=== PATIENT | male | born 1935 | race Caucasian/White ===

== ENCOUNTER 2016-12-18 08:40 | Observation (INO) ==
--- NOTE | 2016-12-18 09:40 | Emergency Department Note ---
START Narrative - START START: I examined this patient and my medical decision-making was reviewed with the COMPLIANCE PROFESSIONAL/PA/Advanced Practice Nurse/Resident Physician. I agree with the documented findings, disposition and treatment plan as described except to the extent set forth below. ED attending: Patient's emergency medicine resident Dr. MENDIOLA. Please see copy of this note for H&P evaluation and management and ED disposition. We both had independent [id number] time contact with this patient. Briefly: A 1-year-old male history of ID presents ambulatory with family members for fall and syncopal event. Patient up around 7 AM to change possibly his knee locked fell. He said the back of his head on his furniture brief loss of consciousness. He is awake and alert GCS 15 no vomiting no slurred speech neurologically nonfocal afebrile stable vital signs. Of concern he has EKG which shows new AV block possibly and a bradycardia. Patient has no neck pain. Satisfies the Nexus criteria so we will not image his neck. He will get a noncontrast CT the head screening labs and EKG. Admission considered. Disposition pending. Provided 40 minutes of critical care services this patient.
--- NOTE | 2016-12-18 09:40 | Emergency Department Note ---
Disposition Clinical Impression: Bradycardia by electrocardiogram, Mobitz type 2 second degree AV block Fall Qualifiers: Encounter type: initial encounter Qualified Code(s): W19.XXXA - Unspecified fall, initial encounter Closed head injury Qualifiers: Encounter type: initial encounter Qualified Code(s): S09.90XA - Unspecified injury of head, initial encounter Disposition: Admitted As Inpatient Condition: Fair Time of Disposition: 11:36 General Adult HPI - General Chief complaint: ED Weakness Stated complaint: fall/legs collapsed from under/weakness Time Seen by Provider: 12/18/16 09:05 Source: patient Limitations: no limitations Nursing Notes Reviewed: Yes Vital Signs Reviewed: Yes - History of Present Illness HPI Narrative: 81-year-old male presents to the ED complaining of fall from earlier this morning. Patient has a past medical history of myocardial infarction, pulmonary embolism, arthritis. Patient states that he was getting up this morning at approximately 7:00 this morning he said he was walking to the bathroom and he felt like his knee possibly locked and he fell backwards hitting the back of his head against the wall. Patient states that he had a 2 out of 10 pain in the back of the head when he fell and also noted a short loss of consciousness. Family when asked about what happened and stated that he was , unsure and was acting his normal self. They stated that he is acting normal now. He is not complaining of a other symptoms at this time. They came here stating they are worried that he has a stroke as his mother had many strokes and he has not had one yet and is worried that he is susceptible to them. Pain Scale: 2 - Related Data Home Medications Medication Instructions Recorded Confirmed Aspirin/Calcium Carbonate/Mag 325 mg PO DAILY 05/27/15 12/18/16 [Aspirin Buffered 325 mg Tab] Atorvastatin [Lipitor] 40 mg PO DAILY 05/27/15 12/18/16 Cholecalciferol (Vitamin D3) 2,000 unit PO DAILY 05/27/15 12/18/16 [Vitamin D3] Fluticasone Propionate Nasal 1 spray NS DAILY 05/27/15 12/18/16 [Flonase] Lisinopril [Zestril] 40 mg PO DAILY 05/27/15 12/18/16 Omeprazole [PriLOSEC] 20 mg PO DAILY 05/27/15 12/18/16 traMADol [Ultram] 50 mg PO TID PRN 05/27/15 12/18/16 Simvastatin [Zocor] 40 mg PO HS 12/18/16 12/18/16 Allergies Allergy/AdvReac Type Severity Reaction Status Date / Time No Known Allergies Allergy Verified 12/18/16 08:43 All systems ED: reviewed and negative except as stated. Constitutional: Denies: fever, chills, weakness, weight change Eyes: Denies: eye pain, eye discharge, vision change ENT ED: Denies: ear pain, throat pain, dental pain, hearing loss, epistaxis, congestion, dysphagia Cardiovascular: Denies: chest pain, palpitations, dyspnea on exertion, edema, syncope Respiratory: Denies: cough, dyspnea, wheezes, hemoptysis, stridor Gastrointestinal: Denies: abdominal pain, nausea, vomiting, diarrhea, constipation, hematemesis, melena, hematochezia Genitourinary: Denies: urgency, dysuria, frequency, hematuria Musculoskeletal: Denies: back pain, neck pain, arthralgia, myalgia Integumentary: Denies: rash, abrasion, lesions Neurological: Denies: headache, weakness, numbness, paresthesias, confusion, abnormal gait, vertigo Psychiatric: Denies: anxiety, depression, suicidal thoughts, homicidal thoughts , auditory hallucinations, visual hallucinations Endocrine: Denies: fatigue Hematological/Lymphatic: Denies: easy bleeding, easy bruising Past Medical History - Past Medical History Attestation: Yes The following information was validated with the patient. Medical history: Reports: hypertension, myocardial infarction, pulmonary embolus Surgical history: Reports: angioplasty/stent, appendectomy, cholecystectomy, coronary bypass (CABG) Psychiatric history: Reports: no psych history - Social History Smoking Status: Never smoker Smokeless Tobacco Status: No Alcohol use: Reports: none Drug use: Reports: none Physical Exam - General Limitations: no limitations General appearance: alert - Head Head exam: atraumatic, normocephalic, normal inspection - Eye Eye exam: Present: normal appearance, PERRL, EOMI - ENT ENT exam: normal exam, normal oropharynx, mucous membranes moist - Neck Neck exam: Present: normal inspection, full ROM, trachea midline. Absent: tenderness, lymphadenopathy - Chest Chest inspection: Present: normal inspection, symmetric chest wall rise - Respiratory Respiratory exam: Present: normal lung sounds bilaterally - Cardiovascular Cardiovascular exam: Present: normal rhythm, bradycardia (With minor pauses), normal heart sounds - Abdominal Exam Abdominal exam: Present: soft, Non-Tender. Absent: tenderness, distention, guarding, rebound, rigidity - Extremities Exam Extremities exam: Present: normal inspection, full ROM. Absent: tenderness, pedal edema - Back Exam Back exam: Present: normal inspection, full ROM. Absent: tenderness, CVA tenderness (R), CVA tenderness (L) - Neurological Exam Neurological exam: Present: alert, oriented X3, CN II-XII intact - Expanded Neurological Exam Patient oriented to: Present: person, place, time Speech: Present: fluid speech Cranial nerves: EOM function (II, III, IV, ): Normal, facial sensation (V): Normal, facial palsy (VII): Normal, spinal accessory function (XI): Normal, tongue deviation (XII): Normal Cerebellar function: finger to nose: Normal, heel to george: Normal Cerebellar function: normal gait Motor strength - LUE: 5/5 Motor strength - RUE: 5/5 Motor strength - LLE: 5/5 Motor strength - RLE: 5/5 Sensory exam upper extremity: light touch: Normal Sensory exam lower extremity: light touch: Normal Spinal cord function: Absent: saddle anesthesia Coma Scale Eye Opening: Spontaneous Coma Scale Motor Response: Obeys Commands Coma Scale Verbal Response: Oriented Coma Scale Total: 15 - Skin Skin exam: Present: warm, dry, intact, normal color Course Course Narrative: 81-year-old male was STD from a fall family's worry about stroke. Due to cardiac history we will order EKG and troponins. Due to the fall will get CBC and BMP looking for any anemias or electrolyte abnormalities. After talking with family they would like a CT of the head to be done. At this time I do not think a CT of the neck is needed as patient had no neurological symptoms and no tenderness on palpation to the cervical spine. Patient is awake and alert with no nausea or vomiting at this time. I do not think this is a stroke. Patient is okay with this plan. - Reevaluation(s) Reevaluation #1: Reevaluation states he is still doing well at this time he is not any nausea, vomiting, pain or tingling in the arms or legs or any numbness. They did note that his heart rate has been dropping into the 30s and 40s. Reviewed his CT scan of his head which showed no acute abnormalities and review this with the patient and he understands it. Labs came back showing mild hyponatremia most likely due to slight dehydration. EKG was abnormal based on his last one after talking with the patient more we both agree that admission to the hospital is the best course of action at this time. Patient will have an IV placed for the admission. Call made to hospitalist awaiting callback from hospitalist. Time: 10:49 Reevaluation #2: Patient is still doing well in bed and they have not noticed any heart rates down into the 30s and 40s at this time. I spoke with the hospitalist who agreed to accept the patient and asked for cardiology be consulted as well as ordering coagulation studies. I consult with cardiology and spoke with Dr. Hinson who asked for the patient to be nothing by mouth at this time as there is possibility of placing a pacemaker today. They stated they will since on down to see him. Currently awaiting bed for admission. Time: 11:31 - Consultations Consultation #1: Spoke with the hospitalist Dr. Garcia who agreed to admit the patient with a cardiac consultation and I would order regulation studies. Consultation #2: Spoke with cardiology Dr. Hinson who agreed to see the patient and asked for the patient to be nothing by mouth for possible pacemaker placement today. Vital Signs Temperature 97.8 F 12/18/16 08:44 Pulse Rate 72 12/18/16 08:44 Respiratory Rate 20 12/18/16 08:44 Blood Pressure 183/132 12/18/16 08:44 O2 Sat by Pulse Oximetry 99 12/18/16 08:44 Temperature 97.8 F 12/18/16 08:44 Pulse Rate 69 12/18/16 10:32 Respiratory Rate 18 12/18/16 10:32 Blood Pressure 138/84 12/18/16 10:32 O2 Sat by Pulse Oximetry 96 12/18/16 10:32 Oxygen Delivery Oxygen Delivery Room Air Medical Decision Making - [facility] Narrative Medical decision making narrative: An 81-year-old male who presents to the ED complaining of weakness from a fall and was worried about a stroke. After Dr. Grant he stated that he fell while getting up to go to the bathroom where he was very diaphoretic and weak and had to crawl his way to the toilet because he was scared he was going to vomit. He states that he fell backwards and hit the back of his head against the wall and did lose consciousness. came and when she heard him fall and said that he was not acting his normal self at this time. They brought him in today worried about a stroke. We did a head CT which was negative for any acute findings. We also did basic labs showed a mild hyponatremia with no other changes. His EKG didmajor changes and now he was sinus bradycardic with a second-degree AV block Mobitz type II which is new based on his EKG done 05/27/15 which showed normal sinus rhythm which is a first-degree block. After talking with patient more he has not been on his beta hank has had no chest pains or shortness of breath recently. He has noted his positives during his heart rate he said when he checks his pulse at home and due to his cardiac history of having myocardial infarctions and being seen by cardiology we thought it best to admit the patient. Family and patient agree with this plan. Hospitalist was notified and agreed to accept the patient with a cardiology consult. Reality was consulted and asked the patient to be nothing by mouth for possible pacemaker placement today. Patient admitted to hospitalist service with cardiac consultation. Head CT 12/18/16 09:33 IMPRESSION: No acute intracranial abnormality. Chronic white matter changes and age-related cerebral atrophy. D/ / Guanako Iqbal MD / Guanako Iqbal MD Interpreting Provider: Guanako Iqbal MD - Medical Records Medical records reviewed: Yes I reviewed the patient's medical records. - Lab Data Lab results reviewed: Yes I reviewed the patient's lab results. Result diagrams: 12/18/16 09:47 12/18/16 09:47 Lab Results 12/18/16 12/18/16 12/18/16 Range/Units 09:47 09:47 09:47 WBC 7.5 (4.3-11.1) K/mcL RBC 4.70 (4.19-5.50) M/mcL Hgb 14.4 (12.9-16.9) g/dL Hct 42.4 (37.5-50.1) % MCV 90.2 (83.0-100.0) fL MCH 30.6 (28.0-33.3) pg MCHC 34.0 (31.6-35.5) g/dL RDW 12.1 (11.5-14.5) % Plt Count 173 (140-400) K/mcL MPV 9.1 L (9.4-12.4) fL Immature Gran % 0.4 (0-4) % Seg Neutrophils % 70.7 % Lymphocytes % 13.2 % Monocytes % 12.1 % Eosinophils % 2.8 % Basophils % 0.8 % Neutrophils # 5.3 (1.6-8.9) K/mcL Lymphocytes # 1.0 (0.6-4.6) K/mcL Monocytes # 0.9 (0.0-1.3) K/mcL Eosinophils # 0.2 (0.0-0.6) K/mcL Basophils # 0.1 (0.0-0.2) K/mcL PT (9.4-12.1) Seconds INR APTT (26.0-36.0) Seconds Sodium 134 L (136-145) mEq/L Potassium 4.5 (3.5-4.5) mEq/L Chloride 102 (98-109) mEq/L Carbon Dioxide 25 (19-29) mEq/L BUN 20 (8-26) mg/dL Creatinine 1.17 (0.72-1.25) mg/dL Est GFR ( Amer) > 60 (> 60) Est GFR (Non-Af Amer) 60 (> 60) BUN/Creatinine Ratio 17 (6-26) Glucose 114 H (70-99) mg/dL Calculated Osmolality 281 (280-300) Calcium 9.7 (8.6-10.8) mg/dL Troponin I 0.02 (0-0.03) ng/mL 12/18/16 Range/Units 09:47 WBC (4.3-11.1) K/mcL RBC (4.19-5.50) M/mcL Hgb (12.9-16.9) g/dL Hct (37.5-50.1) % MCV (83.0-100.0) fL MCH (28.0-33.3) pg MCHC (31.6-35.5) g/dL RDW (11.5-14.5) % Plt Count (140-400) K/mcL MPV (9.4-12.4) fL Immature Gran % (0-4) % Seg Neutrophils % % Lymphocytes % % Monocytes % % Eosinophils % % Basophils % % Neutrophils # (1.6-8.9) K/mcL Lymphocytes # (0.6-4.6) K/mcL Monocytes # (0.0-1.3) K/mcL Eosinophils # (0.0-0.6) K/mcL Basophils # (0.0-0.2) K/mcL PT 11.6 (9.4-12.1) Seconds INR 1.1 APTT 28.6 (26.0-36.0) Seconds Sodium (136-145) mEq/L Potassium (3.5-4.5) mEq/L Chloride (98-109) mEq/L Carbon Dioxide (19-29) mEq/L BUN (8-26) mg/dL Creatinine (0.72-1.25) mg/dL Est GFR ( Amer) (> 60) Est GFR (Non-Af Amer) (> 60) BUN/Creatinine Ratio (6-26) Glucose (70-99) mg/dL Calculated Osmolality (280-300) Calcium (8.6-10.8) mg/dL Troponin I (0-0.03) ng/mL - Radiology Data Radiology results reviewed: Yes I reviewed the patient's radiology results. - EKG Data EKG #1 EKG results narrative: EKG done and reviewed by myself out cardiology at 9:30 which shows sinus bradycardia at a rate of 50 bpm, QRS 133, QTc 384 with a left axis deviation. The overall EKG shows a Mobitz type II second-degree AV block. When compared to old one done 05/27/15 there was a first degree AV block. He was normal sinus rhythm not bradycardic also with a left axis deviation. This overall is a new change on his EKG is abnormal EKG. EKG shows normal: sinus rhythm, QRS complexes, ST-T waves Rate: bradycardia [place]/QRS: left axis deviation Heart block present: Mobitz 2 When compared to previous EKG there are: changes noted (Patient had first- degree AV block with no signs of bradycardia on last EKG done 05/27/15) Interpretation: other (2 Mobitz block with positives and showing bradycardia)
[2016-12-18 09:53] LABS: Basophils # 0.1 K/mcL (0.0-0.2); Basophils % 0.8 %; Eosinophils # 0.2 K/mcL (0.0-0.6); Eosinophils % 2.8 %; Hematocrit 42.4 % (37.5-50.1); Hemoglobin 14.4 g/dL (12.9-16.9); Immature Granulocytes % 0.4 % (0-4); Lymphocytes % 13.2 %; Mean Corpuscular Hemoglobin 30.6 pg (28.0-33.3); Mean Corpuscular Volume 90.2 fL (83.0-100.0); Mean Platelet Volume 9.1 fL (9.4-12.4); Monocytes # 0.9 K/mcL (0.0-1.3); Monocytes % 12.1 %; Neutrophils # 5.3 K/mcL (1.6-8.9); Platelet Count 173 K/mcL (140-400); Red Cell Distribution Width 12.1 % (11.5-14.5); Segmented Neutrophils % 70.7 %
[2016-12-18 10:09] LABS: BUN/Creatinine Ratio 17 (6-26); Blood Urea Nitrogen 20 mg/dL (8-26); Calcium 9.7 mg/dL (8.6-10.8); Carbon Dioxide 25 mEq/L (19-29); Chloride 102 mEq/L (98-109); Glucose 114 mg/dL (70-99); Osmolality,Calculated 281 (280-300); Potassium 4.5 mEq/L (3.5-4.5); Sodium 134 mEq/L (136-145); eGFR For African Americans > 60 (> 60); eGFR For Non-African Americans 60 (> 60)
[2016-12-18 11:08] LABS: INR 1.1; Prothrombin Time 11.6 Seconds (9.4-12.1)
[2016-12-18 11:11] LABS: Activated Partial Thrombo Time 28.6 Seconds (26.0-36.0)
[2016-12-18 12:01] LABS: Bilirubin,Urine Negative (Negative); Blood,Urine Negative (Negative); Clarity,Urine Clear (Clear); Color,Urine Yellow (Yellow); Glucose,Urine (UA) Normal (Normal); Ketones,Urine Negative (Negative); Leukocyte Esterase,Urine Negative (Negative); Nitrite,Urine Negative (Negative); Protein,Urine Negative (Neg-Trace); Specific Gravity,Urine 1.011 (1.010-1.025); Urobilinogen,Urine Normal (Normal)
[2016-12-18] MEDS ORDERED: Naloxone 0.4 MG/ML INJ IVP PRN (12:06)
[2016-12-18] MEDS ORDERED: Ondansetron 4 MG/2 ML VIAL IVP PRN (12:20)
--- NOTE | 2016-12-18 12:28 | Internal Med History&Physical ---
<CharlyElicia M - Last Filed: 12/18/16 12:26> Date of Encounter: 12/18/16 Time of Encounter: 12:28 Assessment and Plan (1) Mobitz type 2 second degree AV block Current visit: Yes Status: Acute Patient reporting fatigue lately, as well as collapse this morning followed by weakness. EKG showed sinus bradycardia with 2nd degree AV block, mobitz type II. His heart rate on the monitor was reportedly dropping into the 30s-40s from time to time. On exam, irregular rhythm, with systolic murmur, HR in the 60s. Continuous multiple effect evaporator operator cardiology consulted NPO for possible pacemaker placement. (2) Fall Current visit: Yes Status: Acute Patient suffered a fall at home, reporting he just "collapsed" and feels his legs buckled. Found to have 2nd degree heart block type [address] head negative for abnormality. Head was atraumatic on exam. no neurological deficits. Fall precautions Qualifiers: Encounter type: initial encounter Qualified Code(s): W19.XXXA - Unspecified fall, initial encounter (3) Hypertension Current visit: Yes Status: Acute Patient did not take medications this morning, because he fell soon after waking. Will give home doses of blood pressure medications today. Continue to monitor. Qualifiers: Hypertension type: essential hypertension Qualified Code(s): I10 - Essential (primary) hypertension (4) Cardiomyopathy Current visit: Yes Status: Acute history of ischemic cardiomyopathy. Last echo in 2013 showed EF of 40-45% with mild diastolic dysfunction. Now with new arrhythmia. Echocardiogram. Continuous multiple effect evaporator operator Cardiology consulted. Qualifiers: Cardiomyopathy type: ischemic Qualified Code(s): I25.5 - Ischemic cardiomyopathy (5) DVT prophylaxis Current visit: Yes Status: Acute anti-embolic stockings Heparin TID Internal Medicine - H&P: HPI Chief complaint: fall Admitted From: Emergency Dept Plans for Post Hospital Care: Home History of present illness: Mr. Rowe is a 81 year old male with hypertension, coronary artery disease status post CABG, history of PE, ischemic cardiomyopathy presents to the emergency department today with complaints of fall. Patient reports that he was getting ready to get in the shower this morning when he just collapsed and fell to the floor. He denies feeling like he was lightheaded, and cannot really articulate why her how it happened but thinks that his legs gave out from him. He does report hitting his head against the wall. He reports that he was weak and diaphoretic after suffering the fall. He denies any lightheadedness, headache, dizziness, chest pain, palpitations, shortness of breath. Evaluation in the emergency department included an EKG which showed a new Mobitz type II block, his heart rate was noted to dip into the 30s and 40s on the monitor. CT of the head showed no acute abnormality. Other labs were grossly normal. On exam, patient alert and oriented, in no acute distress. Heart had a regular rhythm with systolic murmur. Heart rate was in the 60s during my evaluation. Lungs are clear bilaterally to auscultation. Abdomen soft nontender, with positive bowel sounds. No peripheral edema, peripheral pulses intact. Cranial nerves intact, no neurological deficits. Past Med Surg Social Fam HX - Past Medical History Medical history: cardiomyopathy, coronary artery disease, hypertension, myocardial infarction, pulmonary embolus Psychiatric history: no psych history - Past Surgical History Surgical History: angioplasty/stent, appendectomy, cholecystectomy, colectomy ( Partial colectomy for diverticulitis 1996), coronary bypass (CABG) - Social History Smoking Status: Never smoker Smokeless Tobacco Status: No Alcohol use: none Drug use: none - Family History Father Living Status: Age at : 74 Cause of : cirrhosis Hx Family GI Disorders: Yes (cirrhosis) Mother Living Status: Age at : 74 Hx Family Cardiac Disorders: Yes ([place], CVA) Sister Living Status: Still Living Hx Family Cardiac Disorders: Yes Internal Medicine - H&P: Meds Aspirin/Calcium Carbonate/Mag [Aspirin Buffered 325 mg Tab] 325 mg PO DAILY 08/06 [History] Atorvastatin [Lipitor] 40 mg PO DAILY 05/27/15 [History] Cholecalciferol (Vitamin D3) [Vitamin D3] 2,000 unit PO DAILY 05/27/15 [History] Fluticasone Propionate Nasal [Flonase] 1 spray NS DAILY 05/27/15 [History] Lisinopril [Zestril] 40 mg PO DAILY 05/27/15 [History] Omeprazole [PriLOSEC] 20 mg PO DAILY 05/27/15 [History] traMADol [Ultram] 50 mg PO TID PRN 05/27/15 [History] Simvastatin [Zocor] 40 mg PO HS 12/18/16 [History] 3 Allergy/AdvReac Type Severity Reaction Status Date / Time No Known Allergies Allergy Verified 12/18/16 08:43 All Systems PM: A 10-system review of systems was performed and is negative for pertinent findings except as documented above in the HPI. - Constitutional Constitutional: fatigue, falls, no chills, no fever(s), no night sweats - EENT Eyes: no change in vision, no discharge, no pain, no photophobia Ears: no ear discharge, no ear pain, no tinnitus Nose, mouth and throat: no dysphagia, no nasal discharge, no neck pain, no sore throat - Cardiovascular Cardiovascular ROS IM: diaphoresis, no chest pain, no dyspnea, no lightheadedness, no palpitations, no syncope - Respiratory Respiratory: no cough, no dyspnea, no wheezing, no excessive phlegm production - Gastrointestinal Gastrointestinal: no abdominal pain, no diarrhea, no hematemesis, no hematochezia, no melena, no nausea, no vomiting - Musculoskeletal Musculoskeletal ROS IM: no numbness, no tingling - Integumentary Integumentary IM: no rash, no unusual bruising - Neurological Neurological ROS: no confusion, no convulsions, no focal weakness, no numbness, no tingling, no tremor(s) - Hematologic/Lymphatic Hematologic/Lymphatic: no easy bruising - Constitutional Vitals: Temp Pulse Resp BP Pulse Ox 97.8 F 69 18 138/84 96 12/18/16 08:44 12/18/16 10:32 12/18/16 10:32 12/18/16 10:32 12/18/16 10:32 General appearance: Present: A&O X 3, pleasant, no acute distress - Head Head exam: Present: atraumatic, normocephalic - Eye Eye exam: Present: PERRL, conjuntiva pink, sclera anicteric Pupils: Present: PERRL - Neck Neck exam general surgery: Present: supple, trachea midline. Absent: lymphadenopathy - Respiratory Respiratory exam: Present: CTAB. Absent: accessory muscle use, rales, rhonchi, wheezes - Cardiovascular Cardiovascular exam: Present: irregular rhythm, +S1, +S2, systolic murmur. Absent: diastolic murmur, gallop, rubs - GI/Abdominal GI/Abdominal exam: Present: normal bowel sounds, soft, no peritoneal signs. Absent: distended, tenderness - Extremities Exam Extremities exam: Present: warm, radial pulses palpable and symmetrical. Absent : calf tenderness, cyanotic, pedal edema - Neurological Exam Neurological exam: Present: CN II-XII intact, oriented X3, no focal deficits. Absent: pronater drift, facial droop, speech deficit - Skin Skin exam: Present: dry, intact Internal Med - H&P Results - Labs CBC & Chem 7: 12/18/16 09:47 12/18/16 09:47 Labs: All Lab Results (24 Hours) 12/18/16 12/18/16 12/18/16 Range/Units 09:47 09:47 09:47 WBC 7.5 (4.3-11.1) K/mcL RBC 4.70 (4.19-5.50) M/mcL Hgb 14.4 (12.9-16.9) g/dL Hct 42.4 (37.5-50.1) % MCV 90.2 (83.0-100.0) fL MCH 30.6 (28.0-33.3) pg MCHC 34.0 (31.6-35.5) g/dL RDW 12.1 (11.5-14.5) % Plt Count 173 (140-400) K/mcL MPV 9.1 L (9.4-12.4) fL Immature Gran % 0.4 (0-4) % Seg Neutrophils % 70.7 % Lymphocytes % 13.2 % Monocytes % 12.1 % Eosinophils % 2.8 % Basophils % 0.8 % Neutrophils # 5.3 (1.6-8.9) K/mcL Lymphocytes # 1.0 (0.6-4.6) K/mcL Monocytes # 0.9 (0.0-1.3) K/mcL Eosinophils # 0.2 (0.0-0.6) K/mcL Basophils # 0.1 (0.0-0.2) K/mcL PT (9.4-12.1) Seconds INR APTT (26.0-36.0) Seconds Sodium 134 L (136-145) mEq/L Potassium 4.5 (3.5-4.5) mEq/L Chloride 102 (98-109) mEq/L Carbon Dioxide 25 (19-29) mEq/L BUN 20 (8-26) mg/dL Creatinine 1.17 (0.72-1.25) mg/dL Est GFR ( Amer) > 60 (> 60) Est GFR (Non-Af Amer) 60 (> 60) BUN/Creatinine Ratio 17 (6-26) Glucose 114 H (70-99) mg/dL Calculated Osmolality 281 (280-300) Calcium 9.7 (8.6-10.8) mg/dL Troponin I 0.02 (0-0.03) ng/mL Urine Color (Yellow) Urine Clarity (Clear) Urine pH (5.0-8.0) pH Units Ur Specific [place] (1.010-1.025) Urine Protein (Neg-Trace) mg/dL Urine Glucose (UA) (Normal) mg/dL Urine Ketones (Negative) mg/dL Urine Blood (Negative) Urine Nitrite (Negative) Urine Bilirubin (Negative) Urine Urobilinogen (Normal) mg/dL Ur Leukocyte Esterase (Negative) Ur Culture Indicated? (NO) 12/18/16 12/18/16 Range/Units 09:47 11:42 WBC (4.3-11.1) K/mcL RBC (4.19-5.50) M/mcL Hgb (12.9-16.9) g/dL Hct (37.5-50.1) % MCV (83.0-100.0) fL MCH (28.0-33.3) pg MCHC (31.6-35.5) g/dL RDW (11.5-14.5) % Plt Count (140-400) K/mcL MPV (9.4-12.4) fL Immature Gran % (0-4) % Seg Neutrophils % % Lymphocytes % % Monocytes % % Eosinophils % % Basophils % % Neutrophils # (1.6-8.9) K/mcL Lymphocytes # (0.6-4.6) K/mcL Monocytes # (0.0-1.3) K/mcL Eosinophils # (0.0-0.6) K/mcL Basophils # (0.0-0.2) K/mcL PT 11.6 (9.4-12.1) Seconds INR 1.1 APTT 28.6 (26.0-36.0) Seconds Sodium (136-145) mEq/L Potassium (3.5-4.5) mEq/L Chloride (98-109) mEq/L Carbon Dioxide (19-29) mEq/L BUN (8-26) mg/dL Creatinine (0.72-1.25) mg/dL Est GFR ( Amer) (> 60) Est GFR (Non-Af Amer) (> 60) BUN/Creatinine Ratio (6-26) Glucose (70-99) mg/dL Calculated Osmolality (280-300) Calcium (8.6-10.8) mg/dL Troponin I (0-0.03) ng/mL Urine Color Yellow (Yellow) Urine Clarity Clear (Clear) Urine pH 7.0 (5.0-8.0) pH Units Ur Specific [place] 1.011 (1.010-1.025) Urine Protein Negative (Neg-Trace) mg/dL Urine Glucose (UA) Normal (Normal) mg/dL Urine Ketones Negative (Negative) mg/dL Urine Blood Negative (Negative) Urine Nitrite Negative (Negative) Urine Bilirubin Negative (Negative) Urine Urobilinogen Normal (Normal) mg/dL Ur Leukocyte Esterase Negative (Negative) Ur Culture Indicated? NO (NO) - Diagnostic Studies CT scan - head Additional comments: Head CT 12/18/16 09:33 IMPRESSION: No acute intracranial abnormality. Chronic white matter changes and age-related cerebral atrophy. D/ / Guanako Iqbal MD / Guanako Iqbal MD Interpreting Provider: Guanako Iqbal MD <Krista Garcia - Last Filed: 12/18/16 17:17> Date of Encounter: 12/18/16 Time of Encounter: 16:50 Internal Medicine - H&P: HPI History of present illness: Mr. Rowe is a 81 year old male All Systems PM: A 10-system review of systems was performed and is negative for pertinent findings except as documented above in the HPI. - Constitutional Vitals: Temp Pulse Resp BP Pulse Ox 97.9 F 68 18 149/79 94 12/18/16 15:10 12/18/16 15:10 12/18/16 15:10 12/18/16 15:10 12/18/16 15:10 Internal Med - H&P Results - Labs CBC & Chem 7: 12/18/16 09:47 12/18/16 09:47 Labs: Urine 12/18/16 Range/Units 11:42 Urine Color Yellow (Yellow) Urine Clarity Clear (Clear) Urine pH 7.0 (5.0-8.0) pH Units Ur Specific [place] 1.011 (1.010-1.025) Urine Protein Negative (Neg-Trace) mg/dL Urine Glucose (UA) Normal (Normal) mg/dL - Attending Attestation Patient independently seen and examined. Admitted s/p fall and found to have Mobitz Type II AV block. Cardiology evaluation requested. Pt resting comfortably in bed and denies discomfort. Case discussed with JAMIL Parks, I agree with her documented findings, assessment, and plan.
--- NOTE | 2016-12-18 13:40 | Electrocardiograph Report ---
[address] [place] [address] Test Date: 2016-12-18 Pat Name: Mustapha Rowe Department: 102 Room: 2A11 Gender: M Assistant Vice President: Francesca : 1935 Requested By: Doni Velazquez Order Number: [id number] Reading MD: Jami Nielson Measurements Intervals [place] Rate: 50 P: MO: 0 QRS: -47 QRSD: 133 T: 63 QT: 412 QTc: 384 Interpretive Statements SINUS BRADYCARDIA WITH 2ND DEGREE AV BLOCK, MOBITZ TYPE I INTRAVENTRICULAR CONDUCTION DELAY MODERATE VOLTAGE CRITERIA FOR LVH, CONSIDER NORMAL VARIANT POSSIBLE SEPTAL MYOCARDIAL INFARCTION OF INDETERMINATE AGE Electronically Signed On 12-18-2016 13:39:13 EDT by Jami Nielson
[2016-12-18] MEDS: 0.9 % Sodium Chloride 1,000 ML IVC SCH (15:20)
[2016-12-18] MEDS: Lisinopril 20 MG TABLET PO SCH (15:21)
--- NOTE | 2016-12-18 15:29 | Cardiology Consult Note ---
Date of Encounter: 12/18/16 Time of Encounter: 15:30 Assessment and Plan (1) CHF (congestive heart failure) Current Visit: Yes Status: Acute Chronic systolic CHF by previous TTE 35-40%. Euvolemic. Repeat TTE. Qualifiers: Congestive heart failure type: systolic Congestive heart failure chronicity : chronic Qualified Code(s): I50.22 - Chronic systolic (congestive) heart failure (2) Mobitz type 2 second degree AV block Current Visit: Yes Status: Acute Mobitz type 1 2nd degree AV block (have not seen any evidence of type 2) No AV bob blockers, continue to monitor overnight for probable PPM tomorrow afternoon. TTE pending. EP consult (3) Hypertension Current Visit: Yes Status: Acute Controlled Qualifiers: Hypertension type: essential hypertension Qualified Code(s): I10 - Essential (primary) hypertension Discussion w patient/family: The assessment and plan as outlined above was discussed with the patient and/or family members who expressed understanding and agreement. All questions were answered. Thank you for involving us in the care of your patient. Please call with any questions. History of Present Illness History of present illness: Mr. Rowe is a 81 year old male Past Med Surg Social Fam HX - Past Medical History Medical history: cardiomyopathy, coronary artery disease, hypertension, myocardial infarction, pulmonary embolus Psychiatric history: no psych history - Past Surgical History Surgical History: angioplasty/stent, appendectomy, cholecystectomy, colectomy, coronary bypass (CABG) - Social History Smoking Status: Never smoker Smokeless Tobacco Status: No Alcohol use: none Drug use: none - Family History Sister Living Status: Still Living Hx Family Cardiac Disorders: Yes Father Living Status: Age at : 74 Cause of : cirrhosis Hx Family GI Disorders: Yes (cirrhosis) Mother Living Status: Age at : 74 Hx Family Cardiac Disorders: Yes ([place], CVA) Medications and Allergies Aspirin/Calcium Carbonate/Mag [Aspirin Buffered 325 mg Tab] 325 mg PO DAILY 08/06 [History] Atorvastatin [Lipitor] 40 mg PO DAILY 05/27/15 [History] Cholecalciferol (Vitamin D3) [Vitamin D3] 2,000 unit PO DAILY 05/27/15 [History] Fluticasone Propionate Nasal [Flonase] 1 spray NS DAILY 05/27/15 [History] Lisinopril [Zestril] 40 mg PO DAILY 05/27/15 [History] Omeprazole [PriLOSEC] 20 mg PO DAILY 05/27/15 [History] traMADol [Ultram] 50 mg PO TID PRN 05/27/15 [History] Simvastatin [Zocor] 40 mg PO HS 12/18/16 [History] 3 Allergy/AdvReac Type Severity Reaction Status Date / Time No Known Allergies Allergy Verified 12/18/16 08:43 All Systems Review: A 10-system review of systems was performed and is negative for pertinent findings except as documented above in the HPI. - Constitutional Constitutional: fatigue, no chills, no fever(s) - EENT Eyes: no blurred vision, no loss of vision Nose, mouth and throat: no epistaxis, no odynophagia - Cardiovascular Cardiovascular: no chest pain at rest, no chest pain with exertion - Respiratory Respiratory: no dyspnea, no hemoptysis - Gastrointestinal Gastrointestinal: no coffee ground emesis, no hematemesis - Genitourinary Genitourinary: no dysuria, no hematuria - Musculoskeletal Musculoskeletal: no arthralgias, no muscle weakness - Integumentary Integumentary: no erythema, no rash - Neurological Neurological: no dizziness, no syncope - Psychiatric Psychiatric: no anxiety, no depression - Hematological/Lymphatic Hematologic/Lymphatic: no easy bleeding, no easy bruising Physical Examination Vital Signs, Last 4 Hours Temp Pulse Resp BP Pulse Ox 12/18/16 15:10 97.9 F 68 18 149/79 94 12/18/16 13:34 18 141/85 12/18/16 13:10 60 18 148/92 98 12/18/16 12:15 80 150/91 General: Conversant HEENT: Atraumatic Neck: No JVD Cardiac: Reg Rate and Rhythm Lungs: Normal Breath Sounds Neuro: Alert and responsive Abdomen: Soft Skin: No rashes noted on visualized skin Musculoskeletal: No Chest Wall Tenderness Extremities: No Edema Results 12/18/16 09:47 12/18/16 09:47 - EKG Interpretation EKG results cardiology: personally reviewed (2nd degree AV block Type 1) Consult Discharge Plan - Plan Referrals: Silvio Lyons DO [Primary Care Provider] -
[2016-12-18] MEDS ORDERED: *HR* Heparin 5,000 UNIT/ML VIAL SQ SCH (22:00)
[2016-12-19] MEDS: traMADol 50 MG TABLET PO PRN ×2 (03:09→07:27)
[2016-12-19] MEDS: 0.9 % Sodium Chloride 1,000 ML IVC SCH (03:10)
[2016-12-19 04:45] LABS: Basophils # 0.1 K/mcL (0.0-0.2); Basophils % 0.9 %; Eosinophils # 0.2 K/mcL (0.0-0.6); Eosinophils % 2.5 %; Hematocrit 42.7 % (37.5-50.1); Hemoglobin 14.2 g/dL (12.9-16.9); Immature Granulocytes % 0.4 % (0-4); Lymphocytes # 1.5 K/mcL (0.6-4.6); Lymphocytes % 22.4 %; Mean Corpuscular HGB Conc 33.3 g/dL (31.6-35.5); Mean Corpuscular Hemoglobin 30.1 pg (28.0-33.3); Mean Corpuscular Volume 90.5 fL (83.0-100.0); Mean Platelet Volume 9.2 fL (9.4-12.4); Monocytes # 0.9 K/mcL (0.0-1.3); Monocytes % 12.5 %; Neutrophils # 4.2 K/mcL (1.6-8.9); Platelet Count 166 K/mcL (140-400); Red Blood Count 4.72 M/mcL (4.19-5.50); Red Cell Distribution Width 12.2 % (11.5-14.5); Segmented Neutrophils % 61.3 %
[2016-12-19 04:58] LABS: BUN/Creatinine Ratio 17 (6-26); Blood Urea Nitrogen 18 mg/dL (8-26); Calcium 9.4 mg/dL (8.6-10.8); Carbon Dioxide 22 mEq/L (19-29); Chloride 107 mEq/L (98-109); Chol/HDL Ratio 4.8 (0-4.9); Cholesterol 158 mg/dL (< 200); Glucose 88 mg/dL (70-99); HDL Cholesterol 33 mg/dL (40-59); LDL Cholesterol,Calculated 96 mg/dL (0-99); Magnesium 1.6 mg/dL (1.6-2.6); Osmolality,Calculated 283 (280-300); Phosphorous 2.8 mg/dL (2.3-4.7); Potassium 4.2 mEq/L (3.5-4.5); Sodium 136 mEq/L (136-145); Triglycerides 146 mg/dL (< 150); eGFR For African Americans > 60 (> 60); eGFR For Non-African Americans > 60 (> 60)
[2016-12-19] MEDS: Lisinopril 20 MG TABLET PO SCH (07:26)
[2016-12-19] MEDS: Aspirin Enteric Coated 325 MG Tablet PO SCH (07:27)
[2016-12-19] MEDS: Acetaminophen 325 MG TABLET PO PRN ×2 (07:27→19:43)
[2016-12-19] MEDS: Fluticasone Propionate Nasal 50 MCG/SPRAY BOTTLE NS SCH ×2 (07:31→09:57)
--- NOTE | 2016-12-19 08:55 | Electrophysiology Consult Note ---
Date of Encounter: 12/19/16 Time of Encounter: 08:53 Assessment and Plan (1) Atrioventricular block, Mobitz type 1, Nathan Current Visit: Yes Status: Acute EKG demonstrates sinus bradycardia, HR 50 bpm, 2nd degree AV block , mobitz type I. Telemetry review shows Sinus rhythm to sinus bradycardia. 2nd degree mobitz type I seen multiple times in evening and at night. Pauses up to 2.2 seconds. 2: 1 block seen on occasion. Minimum HR was 36 bpm at 9:27 pm. Maximum HR 90 bpm at 9:12 pm. Patient presented with collapse. C/o fatigue and feeling heart skip beats for the last three months. He is not on any AV bob blockers. Electrolytes and kidney function is normal. Check TSH. PPM indications discussed with patient. He agrees to proceed. Will discuss further with Dr. Gavino Qureshi. TTE re-ordered with definity. EF not well seen on TTE completed last night. Last echocardiogram in 2013 showed EF 40-45%. Possible PPM placement later this afternoon. (2) Bradycardia by electrocardiogram Current Visit: Yes Status: Acute Discussion w patient/family: The assessment and plan as outlined above was discussed with the patient and/or family members who expressed understanding and agreement. All questions were answered. Thank you for involving us in the care of your patient. Please call with any questions. History of Present Illness Consult date: 12/19/16 Requesting physician: Barrett Hinson Consult reason: Second degree AV block, Syncope Chief complaint: "I collapsed" History of present illness: Mr. Rowe is a 81 year old male with a history of CAD s/p prior PR, s/p PTCA 1997, s/p 3 vessel CABG in 2001, ischemic cardiomyopathy HLD, HTN, and venous insufficiency who presented after falling at home. He states he was getting out of bed and undressing to take a shower, when he started walking and made a turn for the shower when he fell. He said, " I collapsed" and he felt his whole body stopped working. He reports that he did lose consciousness for a brief period. He felt weak afterwards and was unable to stand. After several minutes he crawled to his bed and pulled himself up. His was asleep at the time of the event. She did wake when she heard him fall. They called his son for help. While in the ER he was noted to have a second degree AV block. Electrophysiology was consulted to evaluate patient for PPM. He is not on AV bob hank d/t the side effect of fatigue when taking. He denies chest pain or SOB. Denies dizziness, lightheadedness, or vision changes leading up to the event. Previous cardiac testing: Echocardiogram 05/2013: EF 40-45%, mild diastolic dysfunction, and mild aortic regurgitation. Stress test 05/2013: Previous apical infarct and no evidence of ischemia. Exercise nuclear stress test 05/28/2015: Exercise ECG negative for ischemia. Gaited EF 55%. Moderate to severe intensity, fixed perfusion defect involving the mid to apical anteroseptal, apical anterior, and apex segments consistent with a prior PR. No evidence of ischemia. Carotid duplex 09/25/2014: Bilateral carotids are essentially normal. Past Med Surg Social Fam HX - Past Medical History Medical history: cardiomyopathy, coronary artery disease, hypertension, myocardial infarction Psychiatric history: no psych history - Past Surgical History Surgical History: angioplasty/stent, appendectomy, cholecystectomy, colectomy, coronary bypass (CABG) - Social History Smoking Status: Never smoker Smokeless Tobacco Status: No Alcohol use: none Drug use: none - Family History Sister Living Status: Still Living Hx Family Cardiac Disorders: Yes Father Living Status: Age at : 74 Cause of : cirrhosis Hx Family GI Disorders: Yes (cirrhosis) Mother Living Status: Age at : 74 Hx Family Cardiac Disorders: Yes ([place], CVA) Medications and Allergies Aspirin/Calcium Carbonate/Mag [Aspirin Buffered 325 mg Tab] 325 mg PO DAILY 08/06 [History] Cholecalciferol (Vitamin D3) [Vitamin D3] 2,000 unit PO DAILY 05/27/15 [History] Fluticasone Propionate Nasal [Flonase] 1 spray NS DAILY 05/27/15 [History] Lisinopril [Zestril] 40 mg PO DAILY 05/27/15 [History] Omeprazole [PriLOSEC] 20 mg PO DAILY 05/27/15 [History] traMADol [Ultram] 50 mg PO TID PRN 05/27/15 [History] Simvastatin [Zocor] 40 mg PO HS 12/18/16 [History] 3 Allergy/AdvReac Type Severity Reaction Status Date / Time No Known Allergies Allergy Verified 12/18/16 08:43 All Systems Review: A 10-system review of systems was performed and is negative for pertinent findings except as documented above in the HPI. Physical Examination Vital Signs Temp Pulse Resp BP Pulse Ox 12/19/16 09:05 97.9 F 58 17 148/82 93 12/19/16 04:10 97.8 F 61 16 108/65 98 12/18/16 23:34 98.0 F 60 17 137/72 96 12/18/16 21:09 98.2 F 74 18 125/73 95 12/18/16 19:54 94 12/18/16 15:10 97.9 F 68 18 149/79 94 12/18/16 13:34 18 141/85 12/18/16 13:10 60 18 148/92 98 12/18/16 12:15 80 150/91 12/18/16 11:30 67 145/87 95 12/18/16 10:32 69 18 138/84 96 Intake and Output 12/18/16 12/19/16 12/19/16 23:59 07:59 15:59 Intake Total 1000 / 1000 Balance 1000 / 1000 Intake: IV Fluids 1000 / 1000 0.9 % Sodium Chloride 1, 1000 / 1000 000 ML @ 80 mls/hr IVC . [id number] [facility] Rx#: [id number] Other: Weight 89.1 kg Patient Weight 12/19/16 23:59 Weight 89.1 kg General: Conversant, No Apparent Distress HEENT: Atraumatic, Normocephaly, Mucus Membranes Moist Neck: No JVD, Normal carotid pulses Cardiac: Reg Rate and Rhythm, Normal S1 and S2, No Murmur Lungs: Normal Breath Sounds, No Wheeze, Rales, Rhonchi Neuro: Alert and responsive, No focal deficits noted Abdomen: Soft, Non-Tender Skin: No rashes noted on visualized skin Musculoskeletal: No Chest Wall Tenderness Extremities: No Clubbing, No Cyanosis, No Edema, Normal Pulses Results 12/19/16 04:03 12/19/16 04:03 Lab Results 12/19/16 12/19/16 04:03 04:03 WBC 6.8 Hgb 14.2 Hct 42.7 Plt Count 166 Sodium 136 Potassium 4.2 Chloride 107 Carbon Dioxide 22 BUN 18 Creatinine 1.06 Glucose 88 Calcium 9.4 Magnesium 1.6 - Imaging and Cardiology Echo: report reviewed - EKG Interpretation EKG results cardiology: personally reviewed (Sinus bradycardia with second degree AV block, mobitz type I) Consult Discharge Plan - Plan Referrals: Silvio Lyons DO [Primary Care Provider] -
[2016-12-19] MEDS ORDERED: Lisinopril 20 MG TABLET PO SCH (09:00)
--- NOTE | 2016-12-19 10:03 | Internal Med Progress Note ---
<Wilman Mcdonald - Last Filed: 12/19/16 13:17> Date of Encounter: 12/19/16 Time of Encounter: 09:15 - Assessment and plan (1) Atrioventricular block, Mobitz type 1, Joseluisnckebach Current Visit: Yes Status: Acute Assessment and plan: Patient has been having sxs for the last few months Collapsed yesterday no syncope Cardiology and Electrophysiology consulted Will have Pacemaker placement today. Pt not on any AV bob blockers. will check TSH per cards recs Repeat Echo with definity due to TTE not giving clear images of EF. (2) Bradycardia by electrocardiogram Current Visit: Yes Status: Acute Assessment and plan: Patient HR has been as low as 36 on telemetry. He has had multiple pauses on the monitor up to 2.2 seconds. Getting PPM placement later today. (3) Fall Current Visit: Yes Status: Acute Assessment and plan: Likely 2/2 to 2nd degree AV block , mobitz type I. No syncope, patient "just collapsed"- his legs gave out form under him. Qualifiers: Encounter type: initial encounter Qualified Code(s): W19.XXXA - Unspecified fall, initial encounter (4) Hypertension Current Visit: Yes Status: Acute Assessment and plan: HTN upon admission. restarted lisinopril BP has been stable. Qualifiers: Hypertension type: essential hypertension Qualified Code(s): I10 - Essential (primary) hypertension (5) Cardiomyopathy Current Visit: Yes Status: Acute Assessment and plan: Hx of Ischemic Cardiomyopathy previous EF 35-45% EF45% on this admission. Cardiology on board. Continue school lunch monitor. Qualifiers: Cardiomyopathy type: ischemic Qualified Code(s): I25.5 - Ischemic cardiomyopathy (6) CHF (congestive heart failure) Current Visit: Yes Status: Chronic Assessment and plan: Chronic Systolic CHF. Prior EF measured as 35-45% TTE on this admission had limited views to calculate EF Definity echo performed today showed EF 45% Qualifiers: Congestive heart failure type: systolic Congestive heart failure chronicity : chronic Qualified Code(s): I50.22 - Chronic systolic (congestive) heart failure - Subjective Interval history: Patient reports feeling fine this morning. He denies Chest Pain, SOB, Abd Pn, N , V, D, Fever Chills, lightheadedness. Patient reports that Cardio will be giving him a pacemaker today. - Constitutional Vitals: Temp Pulse Resp BP Pulse Ox 97.9 F 58 17 148/82 93 12/19/16 09:05 12/19/16 09:05 12/19/16 09:05 12/19/16 09:05 12/19/16 09:05 General appearance: Present: A&O X 3, pleasant, no acute distress - Head Head exam: Present: atraumatic, normocephalic - Eye Eye exam: Present: PERRL, sclera anicteric Pupils: Present: PERRL - Neck Neck exam general surgery: Present: supple, trachea midline - Respiratory Respiratory exam: Present: CTAB. Absent: accessory muscle use, rales, rhonchi, wheezes - Cardiovascular Cardiovascular exam: Present: RRR, +S1, +S2. Absent: diastolic murmur, gallop, rubs, systolic murmur - GI/Abdominal GI/Abdominal exam: Present: normal bowel sounds, soft, no peritoneal signs. Absent: distended, tenderness - Extremities Exam Extremities exam: Present: warm. Absent: calf tenderness, cyanotic, pedal edema - Neurological Exam Neurological exam: Present: alert, oriented X3, no focal deficits. Absent: facial droop, speech deficit - Psychiatric Psychiatric exam: Present: normal affect, normal mood - Skin Skin exam: Present: dry, intact, warm Internal Medicine: Result - Labs CBC & Chem 7: 12/19/16 04:03 12/19/16 04:03 Labs: Short CBC 12/19/16 Range/Units 04:03 WBC 6.8 (4.3-11.1) K/mcL Hgb 14.2 (12.9-16.9) g/dL Hct 42.7 (37.5-50.1) % Plt Count 166 (140-400) K/mcL Neutrophils # 4.2 (1.6-8.9) K/mcL BMP 12/19/16 04:03 Sodium 136 Potassium 4.2 Chloride 107 Carbon Dioxide 22 BUN 18 Creatinine 1.06 Glucose 88 Calcium 9.4 Urine 12/18/16 Range/Units 11:42 Urine Color Yellow (Yellow) Urine Clarity Clear (Clear) Urine pH 7.0 (5.0-8.0) pH Units Ur Specific [place] 1.011 (1.010-1.025) Urine Protein Negative (Neg-Trace) mg/dL Urine Glucose (UA) Normal (Normal) mg/dL - ABG Interpretation ABG results: PT/INR, D-dimer PT 11.6 Seconds (9.4-12.1) 12/18/16 09:47 Consult Discharge Plan - Plan Referrals: Silvio Lyons DO [Primary Care Provider] - 12/21/16 1:30 pm (please follow up as schedule...) <Román Sheridan - Last Filed: 12/19/16 17:49> Date of Encounter: 12/19/16 - Assessment and plan (1) Atrioventricular block, Mobitz type 1, Wenckebach Current Visit: Yes Status: Acute (2) Fall Current Visit: Yes Status: Acute Qualifiers: Encounter type: subsequent encounter Qualified Code(s): W19.XXXD - Unspecified fall, subsequent encounter (3) Hypertension Current Visit: Yes Status: Acute Qualifiers: Hypertension type: essential hypertension Qualified Code(s): I10 - Essential (primary) hypertension - Constitutional Vitals: Temp Pulse Resp BP Pulse Ox 97.8 F 66 12 166/84 95 12/19/16 12:18 12/19/16 12:18 12/19/16 12:18 12/19/16 12:18 12/19/16 12:18 Internal Medicine: Result - Labs CBC & Chem 7: 12/19/16 04:03 12/19/16 04:03 Labs: Short CBC 12/19/16 Range/Units 04:03 WBC 6.8 (4.3-11.1) K/mcL Hgb 14.2 (12.9-16.9) g/dL Hct 42.7 (37.5-50.1) % Plt Count 166 (140-400) K/mcL Neutrophils # 4.2 (1.6-8.9) K/mcL BMP 12/19/16 04:03 Sodium 136 Potassium 4.2 Chloride 107 Carbon Dioxide 22 BUN 18 Creatinine 1.06 Glucose 88 Calcium 9.4 - ABG Interpretation ABG results: PT/INR, D-dimer PT 11.6 Seconds (9.4-12.1) 12/18/16 09:47 - Attending Attestation I examined this patient and my medical decision-making was reviewed with the Resident Physician on 12/19/16. I agree with the documented findings, disposition and treatment plan as described except to the extent set forth below. Mr Rowe is currently in observation for syncope with bradycardia. He is to have pacer today. Exam Alert. Comfortable Heart irreg - not tachy Lungs clear I/P 1. Sick sinus/mobitz 1 - pacer today Further diagnoses and plan as above Anticipate d/c tomorrow.
[2016-12-19] MEDS ORDERED: ceFAZolin 2,000 MG in D5% in Water 100 ML IVPB ONE (10:14)
[2016-12-19 11:13] LABS: Thyroid Stimulating Hormone 1.008 mcIU/mL (0.350-4.840)
[2016-12-19] MEDS ORDERED: Perflutren Lipid Microsphere 1.3 ML in 0.9 % Sodium Chloride 8.7 ML IVP ONE (11:24)
--- NOTE | 2016-12-19 14:33 | Pre-Sedation Evaluation ---
Pre-sedation evaluation - Pre-sedation checklist Date of procedure: 12/19/16 Procedure: Pacemaker Placement Recent Vitals: Last Vital Signs Temp 97.8 F 12/19/16 12:18 Pulse 66 12/19/16 12:18 Resp 12 12/19/16 12:18 BP 166/84 12/19/16 12:18 Pulse Ox 95 12/19/16 12:18 H&P (including ROS) documented in medical record: Yes Previous reaction to sedatives/anesthetics: No Dietary Status: NPO after Midnight Airway Assessment: Patient can open mouth completely, TMJ function normal, Micrognathia (under-bite, receding chin) absent Dentition: No loose teeth or bridges Possible difficult airway: No ASA Classification *see protocol: CLASS II-Mild systemic disease Plan of Care: Pt appropriate candidate for procedure/moderate/conscious sedation
[2016-12-19] MEDS ORDERED: 0.9 % Sodium Chloride 500 ML ONE (14:44)
[2016-12-19] MEDS ORDERED: D5% in Water (Mini-Bag+) 100 ML IVPB ONE (14:45)
[2016-12-19] MEDS ORDERED: Water for inj. (sterile) 10 ML IV ONE (14:45)
[2016-12-19] MEDS ORDERED: *HR* Midazolam HCl 2 MG/2 ML VIAL ONE ×2 (14:57→15:48)
[2016-12-19] MEDS ORDERED: 0.9 % Sodium Chloride 1,000 ML ONE (14:57)
[2016-12-19] MEDS ORDERED: *HR* FentaNYL (PF) 100 MCG/2 ML VIAL ONE (14:57)
[2016-12-19] MEDS ORDERED: *HR* Morphine 2 MG/ML SYRINGE IVP PRN (16:40)
[2016-12-20] MEDS ORDERED: ceFAZolin 2,000 MG in D5% in Water 100 ML IVPB SCH
[2016-12-20] MEDS: traMADol 50 MG TABLET PO PRN (06:45)
[2016-12-20 07:39] VITALS: BP 163/81
[2016-12-20] MEDS: Aspirin Enteric Coated 325 MG Tablet PO SCH (08:00)
[2016-12-20] MEDS: Lisinopril 20 MG TABLET PO SCH (08:00)
[2016-12-20] MEDS: Fluticasone Propionate Nasal 50 MCG/SPRAY BOTTLE NS SCH (08:01)
--- NOTE | 2016-12-20 09:31 | Discharge Summary ---
<Wilman Mcdonald - Last Filed: 12/20/16 09:43> Date of Encounter: 12/20/16 Time of Encounter: 08:15 - Discharge Diagnosis (1) Atrioventricular block, Mobitz type 1, Wenckebach Priority: Primary Status: Acute (2) Bradycardia by electrocardiogram Priority: Secondary Status: Acute (3) Fall Priority: Secondary Status: Acute Qualifiers: Encounter type: subsequent encounter Qualified Code(s): W19.XXXD - Unspecified fall, subsequent encounter (4) Hypertension Priority: Secondary Status: Acute Qualifiers: Hypertension type: essential hypertension Qualified Code(s): I10 - Essential (primary) hypertension (5) Cardiomyopathy Priority: Secondary Status: Acute Qualifiers: Cardiomyopathy type: ischemic Qualified Code(s): I25.5 - Ischemic cardiomyopathy (6) CHF (congestive heart failure) Priority: Secondary Status: Chronic Qualifiers: Congestive heart failure type: systolic Congestive heart failure chronicity : chronic Qualified Code(s): I50.22 - Chronic systolic (congestive) heart failure - Discharge Medications Home Medications: Aspirin/Calcium Carbonate/Mag [Aspirin Buffered 325 mg Tab] 325 mg PO DAILY 08/06 [History] Cholecalciferol (Vitamin D3) [Vitamin D3] 2,000 unit PO DAILY 05/27/15 [History] Fluticasone Propionate Nasal [Flonase] 1 spray NS DAILY 05/27/15 [History] Lisinopril [Zestril] 40 mg PO DAILY 05/27/15 [History] Omeprazole [PriLOSEC] 20 mg PO DAILY 05/27/15 [History] traMADol [Ultram] 50 mg PO TID PRN 05/27/15 [History] Simvastatin [Zocor] 40 mg PO HS 12/18/16 [History] Allergies/Adverse Reactions: 3 Allergy/AdvReac Type Severity Reaction Status Date / Time No Known Allergies Allergy Verified 12/18/16 08:43 Procedures/tests Complete & Pending: Procedures Performed prior 72 hours Category Date Time Status CL Insert Permanent Pacemaker [CL] Routine Recordist Chief 12/19/16 10:13 Completed EV limited echo w enhance Routine Y 12/19/16 08:54 Completed EV limited echocardiogram Stat Y 12/18/16 12:[address]: IMPRESSION: No acute intracranial abnormality. Chronic white matter changes and age-related cerebral atrophy. ECHO 1: Impressions: Technically challenging study with suboptimal windows. LV systolic function could not be well evaluated on this study. Recommend use of Definity. Dilated ascending aorta measuring 4.5 cm. ECHO 2: Impressions: LVEF 45%. Normal LV chamber size. Mild segmental left ventricular systolic dysfunction. Atypical septal motion consistent with post-operative status. CXR1: IMPRESSION: 1. Interval placement of a left-sided cardiac pacer with leads overlying the RA and RV. No acute pulmonary abnormality. 2. Stable mild enlargement of the cardiac silhouette. CXR2: IMPRESSION: Stable appearance of the pacemaker. Mild cardiomegaly and post thoracotomy changes. No evidence of CHF, pneumonia or pleural disease. Date of admission: 12/18/16 11:34 Primary care physician: Portia Kenny Consults: 12/18/16 12:22 Consult to Cardiology [CONS] Routine Comment: Consulting Provider: Card[facility] [place] Reason for Consult: mobitz type 2 heart block on ekg Call Completed: Yes 12/19/16 08:56 Consult to Electrophysiology (EP) [CONS] Routine Consulting Provider: Electrophysiology [facility] Reason for Consult: second degree AV block. Call Completed: Yes Discharging clinician: Wilman Mcdonald Anticipated date of discharge: 12/20/16 - Patient Status Disposition: Home, Self-Care Condition: Fair Overall status at discharge: patient is progressing back to baseline - Discharge Instructions Follow Up With: Silvio Lyons DO [Primary Care Provider] - 12/21/16 1:30 pm (please follow up as schedule...) Additional Instructions: Please Follow up with your primary care provider within 1 week of discharge. Please follow up with cardiology as scheduled. Please resume all your home medications as prescribed. Please return to the hospital if you experience any new or worsening symptoms. - Diet and Activity Activity: resume usual activities as tolerated Diet: advance to your usual diet Interval History: Patient reports some soreness in the area of his surgery. Patient had successful pacemaker placement yesterday. He reports feeling fine. Dressing is C /D/I. Hospital course: Mr. Rowe is a 81 year old male htn, CAD status post CABG, history of PE, ischemic cardiomyopathy, Hx of [place] reports to the hospital s/p "collapse" at home. Patient reports his legs gave out from under him. He was examined in the ED and was found to have second degree AV block Mobitz type I on Ekg/radiographer cardiac catheterization. His CT head was negative. On cardiac monitoring he had pauses of 2 seconds. He was evaluated by Cardiology and the electrophysiology occupational therapy instructor who recommended pacemaker placement. Patient had a successful pacemaker placement, which was verified by interrogation. Patient was discharged home. - Time Spent with Patient Total time spent providing and/or coordinating discharge services: 40 Minutes - Constitutional Vitals: Temp Pulse Resp BP Pulse Ox 97.9 F 67 16 163/81 96 12/20/16 07:34 12/20/16 07:34 12/20/16 07:34 12/20/16 07:34 12/20/16 07:34 General appearance: Present: A&O X 3, pleasant, no acute distress - Head Head exam: Present: atraumatic, normocephalic - Eye Eye exam: Present: PERRL, conjuntiva pink, sclera anicteric Pupils: Present: PERRL - Neck Neck exam general surgery: Present: supple, trachea midline - Respiratory Respiratory exam: Present: CTAB. Absent: accessory muscle use, rales, rhonchi, wheezes - Cardiovascular Cardiovascular exam: Present: RRR, +S1, +S2. Absent: diastolic murmur, gallop, rubs, systolic murmur - GI/Abdominal GI/Abdominal exam: Present: normal bowel sounds, soft, no peritoneal signs. Absent: distended, tenderness - Extremities Exam Extremities exam: Present: warm. Absent: calf tenderness, cyanotic, pedal edema - Neurological Exam Neurological exam: Present: alert, oriented X3. Absent: facial droop, speech deficit - Skin Skin exam: Present: dry, intact - VTE Documentation of Mechanical Device: Intermittent pneumatic compression device <Román Sheridan - Last Filed: 12/20/16 15:30> Date of Encounter: 12/20/16 - Discharge Diagnosis (1) Atrioventricular block, Mobitz type 1, Wenckebach Status: Acute (2) Fall Status: Acute Qualifiers: Encounter type: subsequent encounter Qualified Code(s): W19.XXXD - Unspecified fall, subsequent encounter (3) Hypertension Status: Acute Qualifiers: Hypertension type: essential hypertension Qualified Code(s): I10 - Essential (primary) hypertension (4) CHF (congestive heart failure) Priority: Secondary Status: Chronic Qualifiers: Congestive heart failure type: systolic Congestive heart failure chronicity : chronic Qualified Code(s): I50.22 - Chronic systolic (congestive) heart failure (5) Cardiomyopathy Status: Chronic Qualifiers: Cardiomyopathy type: ischemic Qualified Code(s): I25.5 - Ischemic cardiomyopathy (6) Aortic dilatation Priority: Secondary Status: Chronic (7) Cardiac pacemaker Priority: Secondary Status: Chronic Procedures/tests Complete & Pending: Procedures Performed prior 72 hours Category Date Time Status CL Insert Permanent Pacemaker [CL] Routine Recordist Chief 12/19/16 10:13 Completed EV limited echo w enhance Routine Y 12/19/16 08:54 Completed EV limited echocardiogram Stat Y 12/18/16 12:59 Completed Date of admission: 12/18/16 11:34 Primary care physician: Portia Kenny Consults: 12/18/16 12:22 Consult to Cardiology [CONS] Routine Comment: Consulting Provider: Card[facility] [place] Reason for Consult: mobitz type 2 heart block on ekg Call Completed: Yes 12/19/16 08:56 Consult to Electrophysiology (EP) [CONS] Routine Consulting Provider: Electrophysiology [facility] Reason for Consult: second degree AV block. Call Completed: Yes Hospital course: Mr. Rowe is a 81 year old male - Time Spent with Patient Total time spent providing and/or coordinating discharge services: - Constitutional Vitals: Temp Pulse Resp BP Pulse Ox 97.9 F 67 16 163/81 96 12/20/16 07:34 12/20/16 07:34 12/20/16 07:34 12/20/16 07:34 12/20/16 07:34 - Attending Attestation I examined this patient and my medical decision-making was reviewed with the Resident Physician on 12/20/16. I agree with the documented findings, disposition and treatment plan as described except to the extent set forth below. Mr. Rowe is doing OK. No issues overnight. Pacer eval per card. Ready for discharge home. Exam Alert. Comfortable Heart reg No wheeze Abd soft No edema Plan D/C home Follow up with cardiology as arranged.
--- NOTE | 2016-12-20 11:28 | Cardiology Progress Note ---
Date of Encounter: 12/20/16 Time of Encounter: 10:00 Assessment and Plan (1) Atrioventricular block, Mobitz type 1, Nathan Current Visit: Yes Status: Acute EKG demonstrates sinus bradycardia, HR 50 bpm, 2nd degree AV block , mobitz type I. S/p PPM. Post day device check is normal. CXR with no acute findings. TTE EF 45%. No significant change from previous TTE. Out patient EP f/u will be scheduled. One week f/u for wound check, one month for device check, and [address] Qureshi. Activity restrictions reviewed. No lifting over 5 lbs for one month. No pushing or pulling. No driving for to weeks. Reportable symptoms such as fever in the next week, redness, drainage or swelling around the site reviewed. 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 Previously at 3.7cm in 2013. Recommend CT scan to f/u as out-pt. Discussion w patient/family: The assessment and plan as outlined above was discussed with the patient and/or family members who expressed understanding and agreement. All questions were answered. Thank you for involving us in the care of your patient. Please call with any questions. Subjective Principal diagnosis: Second degree type I AV block. Interval history: S/p PPM. Denies problems overnight. Only minimal pain. Objective Vital Signs, Last 4 Hours Temp Pulse Resp BP Pulse Ox 12/20/16 07:34 97.9 F 67 16 163/81 96 General: Conversant, No Apparent Distress HEENT: Atraumatic, Normocephaly, Mucus Membranes Moist Neck: No JVD, Normal carotid pulses Cardiac: Reg Rate and Rhythm, Normal S1 and S2, No Murmur, Other (Left upper chest incision covered with 4x4 dressing. No drainage. ) Lungs: Normal Breath Sounds, No Wheeze, Rales, Rhonchi Neuro: Alert and responsive, No focal deficits noted Abdomen: Soft, Non-Tender Skin: No rashes noted on visualized skin Musculoskeletal: No Chest Wall Tenderness Extremities: No Clubbing, No Cyanosis, No Edema, Normal Pulses Results 12/19/16 04:03 12/19/16 04:03 - Imaging and Cardiology Echo: report reviewed - EKG Interpretation EKG results cardiology: personally reviewed - VTE Documentation of Mechanical Device: Intermittent pneumatic compression device Consult Discharge Plan - Plan Additional Instructions: Please Follow up with your primary care provider within 1 week of discharge. Please follow up with cardiology as scheduled. Please resume all your home medications as prescribed. Please return to the hospital if you experience any new or worsening symptoms. Referrals: Silvio Lyons DO [Primary Care Provider] - 12/21/16 1:30 pm (please follow up as schedule...)
== END 2016-12-20 11:35 | disposition home or self-care (01) ==
LOC: 3ANU 08:40 → EMEROO 08:40 → SUATTDRO 11:34 → 2ANU 13:27
PROVIDERS: ADMIT Internal Medicine; ATTEND Internal Medicine

== ENCOUNTER 2019-06-29 11:05 | Observation (INO) ==
[2019-06-29] MEDS ORDERED: 0.9 % Sodium Chloride 1,000 ML IVC ONE (11:09)
[2019-06-29 11:28] LABS: Basophils # 0.1 K/mcL (0.0-0.2); Eosinophils # 0.2 K/mcL (0.0-0.6); Eosinophils % 2.4 %; Hematocrit 44.1 % (37.5-50.1); Hemoglobin 14.9 g/dL (12.9-16.9); Immature Granulocytes % 0.3 % (0-4); Lymphocytes % 32.7 %; Mean Corpuscular HGB Conc 33.8 g/dL (31.6-35.5); Mean Corpuscular Hemoglobin 31.1 pg (28.0-33.3); Mean Corpuscular Volume 92.1 fL (83.0-100.0); Monocytes # 1.2 K/mcL (0.0-1.3); Monocytes % 12.7 %; Neutrophils # 4.7 K/mcL (1.6-8.9); Platelet Count 175 K/mcL (140-400); Red Blood Count 4.79 M/mcL (4.19-5.50); Red Cell Distribution Width 12.2 % (11.5-14.5); Segmented Neutrophils % 50.9 %; White Blood Count 9.3 K/mcL (4.3-11.1)
[2019-06-29 11:49] LABS: BUN/Creatinine Ratio 16 (6-26); Blood Urea Nitrogen 23 mg/dL (8-23); Calcium 9.9 mg/dL (8.6-10.3); Carbon Dioxide 22 mEq/L (23-29); Chloride 103 mEq/L (98-107); Glucose 159 mg/dL (70-105); Osmolality,Calculated 283 (280-300); Potassium 3.8 mEq/L (3.5-5.1); Sodium 133 mEq/L (136-145); eGFR For African Americans 56 (> 60); eGFR For Non-African Americans 46 (> 60)
[2019-06-29 11:50] LABS: Troponin I < 0.03 ng/mL (< 0.04)
[2019-06-29] MEDS ORDERED: MOM Conc 10 ML UD.LIQ PO PRN (16:25)
[2019-06-29] MEDS ORDERED: Ondansetron 4 MG/2 ML VIAL IVP PRN (16:25)
[2019-06-29] MEDS ORDERED: Naloxone 0.4 MG/ML INJ IVP PRN (16:25)
[2019-06-29] MEDS ORDERED: *HR* Promethazine 25 MG/ML VIAL IVP PRN (16:25)
[2019-06-29] MEDS ORDERED: Mag Hydrox/Al Hydrox/Simeth 30 ML UDC PO PRN (16:25)
[2019-06-29] MEDS ORDERED: Acetaminophen 325 MG TABLET PO PRN (16:25)
[2019-06-29] MEDS ORDERED: polyethylene glycoL 3350 17 GM POWD.PACK PO PRN (16:27)
[2019-06-29] MEDS: *HR* Heparin 5,000 UNIT/ML VIAL SQ SCH (17:14)
[2019-06-29] MEDS: 0.9 % Sodium Chloride 1,000 ML IVC SCH (17:24)
[2019-06-29] MEDS: Gabapentin 300 MG CAPSULE PO SCH (21:44)
[2019-06-30 02:51] LABS: Basophils # 0.1 K/mcL (0.0-0.2); Basophils % 0.9 %; Eosinophils # 0.2 K/mcL (0.0-0.6); Eosinophils % 3.2 %; Hematocrit 43.1 % (37.5-50.1); Hemoglobin 14.4 g/dL (12.9-16.9); Immature Granulocytes % 0.4 % (0-4); Lymphocytes # 1.2 K/mcL (0.6-4.6); Lymphocytes % 17.8 %; Mean Corpuscular HGB Conc 33.4 g/dL (31.6-35.5); Mean Corpuscular Volume 92.9 fL (83.0-100.0); Mean Platelet Volume 9.6 fL (9.4-12.4); Monocytes # 0.8 K/mcL (0.0-1.3); Monocytes % 11.9 %; Neutrophils # 4.6 K/mcL (1.6-8.9); Platelet Count 159 K/mcL (140-400); Red Blood Count 4.64 M/mcL (4.19-5.50); Red Cell Distribution Width 12.1 % (11.5-14.5); Segmented Neutrophils % 65.8 %
[2019-06-30 03:09] LABS: BUN/Creatinine Ratio 15 (6-26); Blood Urea Nitrogen 18 mg/dL (8-23); Calcium 9.4 mg/dL (8.6-10.3); Carbon Dioxide 25 mEq/L (23-29); Chloride 104 mEq/L (98-107); Glucose 108 mg/dL (70-105); Magnesium 1.8 mg/dL (1.6-2.6); Osmolality,Calculated 280 (280-300); Phosphorous 2.8 mg/dL (2.7-4.5); Potassium 4.1 mEq/L (3.5-5.1); Sodium 134 mEq/L (136-145); eGFR For African Americans > 60 (> 60); eGFR For Non-African Americans 58 (> 60)
[2019-06-30] MEDS: 0.9 % Sodium Chloride 1,000 ML IVC SCH ×2 (03:57→10:31)
[2019-06-30] MEDS: *HR* Heparin 5,000 UNIT/ML VIAL SQ SCH (06:09)
[2019-06-30] MEDS: Gabapentin 300 MG CAPSULE PO SCH (08:29)
[2019-06-30] MEDS ORDERED: Fluticasone Propionate Nasal 50 MCG/SPRAY BOTTLE NS SCH (09:00)
[2019-06-30] MEDS ORDERED: Aspirin Enteric Coated 325 MG Tablet PO SCH (09:00)
[2019-06-30] MEDS ORDERED: lisinopriL 20 MG TABLET PO SCH (09:00)
[2019-06-30] MEDS ORDERED: Cholecalciferol (D-3) 1,000 UNIT (25MCG) TABLET PO SCH (09:00)
[2019-06-30 10:34] VITALS: BP 133/74
== END 2019-06-30 12:48 | disposition home or self-care (01) ==
LOC: 3BNU 11:05 → EMEROOARM 11:05 → 3BNU 13:55
PROVIDERS: ADMIT Internal Medicine; ATTEND Internal Medicine

== ENCOUNTER 2020-03-18 20:43 | Observation (INO) ==
[2020-03-18] MEDS ORDERED: Nitroglycerin 0.4 MG TAB.SUBL SL PRN (20:51)
[2020-03-18 21:17] LABS: Basophils # 0.1 K/mcL (0.0-0.2); Basophils % 0.9 %; Eosinophils # 0.1 K/mcL (0.0-0.6); Eosinophils % 1.8 %; Hematocrit 43.2 % (37.5-50.1); Hemoglobin 14.7 g/dL (12.9-16.9); Immature Granulocytes % 0.3 % (0-4); Lymphocytes # 1.3 K/mcL (0.6-4.6); Lymphocytes % 17.1 %; Mean Corpuscular Hemoglobin 32.5 pg (28.0-33.3); Mean Corpuscular Volume 95.6 fL (83.0-100.0); Mean Platelet Volume 9.5 fL (9.4-12.4); Monocytes # 0.8 K/mcL (0.0-1.3); Monocytes % 10.5 %; Neutrophils # 5.4 K/mcL (1.6-8.9); Platelet Count 175 K/mcL (140-400); Red Blood Count 4.52 M/mcL (4.19-5.50); Red Cell Distribution Width 12.5 % (11.5-14.5); Segmented Neutrophils % 69.4 %; White Blood Count 7.7 K/mcL (4.3-11.1)
[2020-03-18 22:08] LABS: Alanine Aminotransferase 15 Units/L (7-52); Albumin 4.3 g/dL (3.5-5.7); Albumin/Globulin Ratio 1.7 (1.1-2.2); Alkaline Phosphatase 54 Units/L (34-104); Aspartate Amino Transferase 22 Units/L (13-39); BUN/Creatinine Ratio 18 (6-26); Bilirubin,Direct 0.1 mg/dL (0.0-0.2); Bilirubin,Indirect 0.3 mg/dL (0.0-1.0); Bilirubin,Total 0.4 mg/dL (0.3-1.0); Blood Urea Nitrogen 19 mg/dL (8-23); Carbon Dioxide 23 mEq/L (23-29); Chloride 101 mEq/L (98-107); Globulin 2.6 g/dL (2.4-3.5); Glucose 128 mg/dL (70-105); Lipase 27 Units/L (11-82); Osmolality,Calculated 282 (280-300); Potassium 4.4 mEq/L (3.5-5.1); Sodium 134 mEq/L (136-145); Total Protein 6.9 g/dL (6.4-8.9); Troponin I 0.04 ng/mL (< 0.04); eGFR For African Americans > 60 (> 60); eGFR For Non-African Americans > 60 (> 60)
[2020-03-18] MEDS ORDERED: Naloxone 0.4 MG/ML INJ IVP PRN (22:53)
[2020-03-18] MEDS ORDERED: Ondansetron 4 MG/2 ML VIAL IVP PRN (22:53)
[2020-03-18] MEDS ORDERED: polyethylene glycoL 3350 17 GM POWD.PACK PO PRN (23:30)
[2020-03-19 04:15] LABS: Basophils # 0.1 K/mcL (0.0-0.2); Basophils % 0.8 %; Eosinophils # 0.2 K/mcL (0.0-0.6); Eosinophils % 2.5 %; Hematocrit 40.9 % (37.5-50.1); Hemoglobin 13.6 g/dL (12.9-16.9); Immature Granulocytes % 0.4 % (0-4); Lymphocytes # 1.4 K/mcL (0.6-4.6); Lymphocytes % 19.8 %; Mean Corpuscular HGB Conc 33.3 g/dL (31.6-35.5); Mean Corpuscular Hemoglobin 32.1 pg (28.0-33.3); Mean Corpuscular Volume 96.5 fL (83.0-100.0); Mean Platelet Volume 10.1 fL (9.4-12.4); Monocytes # 0.9 K/mcL (0.0-1.3); Monocytes % 12.5 %; Neutrophils # 4.6 K/mcL (1.6-8.9); Platelet Count 173 K/mcL (140-400); Red Blood Count 4.24 M/mcL (4.19-5.50); Red Cell Distribution Width 12.5 % (11.5-14.5); White Blood Count 7.2 K/mcL (4.3-11.1)
[2020-03-19 04:31] LABS: BUN/Creatinine Ratio 17 (6-26); Blood Urea Nitrogen 17 mg/dL (8-23); Calcium 9.6 mg/dL (8.6-10.3); Carbon Dioxide 26 mEq/L (23-29); Chloride 101 mEq/L (98-107); Glucose 126 mg/dL (70-105); Magnesium 1.8 mg/dL (1.6-2.6); Osmolality,Calculated 279 (280-300); Potassium 3.8 mEq/L (3.5-5.1); Sodium 133 mEq/L (136-145); eGFR For African Americans > 60 (> 60); eGFR For Non-African Americans > 60 (> 60)
[2020-03-19] MEDS: *HR* Heparin 5,000 UNIT/ML VIAL SQ SCH ×3 (05:08→19:48)
[2020-03-19] MEDS ORDERED: Perflutren Lipid Microsphere 1.3 ML in 0.9 % Sodium Chloride 8.7 ML IVP PRN (09:40)
[2020-03-19] MEDS ORDERED: Furosemide 20 MG/2 ML VIAL IVP ONE (09:43)
[2020-03-19] MEDS: Cholecalciferol (D-3) 1,000 UNIT (25MCG) TABLET PO SCH (10:09)
[2020-03-19] MEDS: lisinopriL 20 MG TABLET PO SCH (10:10)
[2020-03-19] MEDS: Gabapentin 300 MG CAPSULE PO SCH ×3 (10:10→19:48)
[2020-03-19] MEDS: Aspirin 81 MG TAB.CHEW PO SCH (10:10)
[2020-03-19] MEDS: Fluticasone Propionate Nasal 50 MCG/SPRAY BOTTLE NS SCH (11:13)
[2020-03-20] MEDS: *HR* Heparin 5,000 UNIT/ML VIAL SQ SCH (05:00)
[2020-03-20 07:02] VITALS: BP 109/68
[2020-03-20] MEDS: lisinopriL 20 MG TABLET PO SCH (08:21)
[2020-03-20] MEDS: Gabapentin 300 MG CAPSULE PO SCH (08:22)
[2020-03-20] MEDS: Cholecalciferol (D-3) 1,000 UNIT (25MCG) TABLET PO SCH (08:22)
[2020-03-20] MEDS: Aspirin 81 MG TAB.CHEW PO SCH (08:22)
[2020-03-20] MEDS: Fluticasone Propionate Nasal 50 MCG/SPRAY BOTTLE NS SCH (08:23)
[2020-03-20] MEDS ORDERED: Isosorbide MONOnitrate (24 HR) 30 MG TAB.ER.24H PO SCH (09:00)
== END 2020-03-20 09:47 | disposition home or self-care (01) ==
LOC: EMEROOARM 20:43 → 3BNU 20:43
PROVIDERS: ADMIT Internal Medicine; ATTEND Internal Medicine

== ENCOUNTER 2020-03-31 05:24 | Inpatient (IN) ==
[2020-03-31] MEDS ORDERED: Isovue-370 500 ML BOTTLE IVP ONE (05:32)
[2020-03-31 06:02] LABS: Basophils % 0.3 %; Hematocrit 42.6 % (37.5-50.1); Hemoglobin 14.5 g/dL (12.9-16.9); Immature Granulocytes % 0.5 % (0-4); Lymphocytes # 0.6 K/mcL (0.6-4.6); Lymphocytes % 5.8 %; Mean Corpuscular Hemoglobin 31.3 pg (28.0-33.3); Mean Corpuscular Volume 91.8 fL (83.0-100.0); Mean Platelet Volume 9.9 fL (9.4-12.4); Neutrophils # 9.3 K/mcL (1.6-8.9); Platelet Count 178 K/mcL (140-400); Red Blood Count 4.64 M/mcL (4.19-5.50); Red Cell Distribution Width 12.3 % (11.5-14.5); Segmented Neutrophils % 84.4 %; White Blood Count 11.1 K/mcL (4.3-11.1)
[2020-03-31 06:02] LABS: ABG Base Excess -4 mEq/L (-2 to 3); ABG HCO3 18 mEq/L (21-27); ABG Oxygen Saturation 88 % (95-98); ABG PCO2 26 mmHg (35-45); ABG PH 7.45 pH Units (7.32-7.45); ABG PO2 51 mmHg (85-104); ABG TCO2 19 mEq/L (20-26)
[2020-03-31 06:20] LABS: Calcium 9.4 mg/dL (8.6-10.3); Potassium 4.4 mEq/L (3.5-5.1)
[2020-03-31 06:22] LABS: Troponin I 0.55 ng/mL (< 0.04)
[2020-03-31] MEDS ORDERED: Dexamethasone 4 MG/ML VIAL IVP ONE (07:24)
[2020-03-31] MEDS ORDERED: Furosemide 40 MG/4 ML VIAL IVP ONE (08:32)
[2020-03-31] MEDS ORDERED: Naloxone 0.4 MG/ML INJ IVP PRN (08:35)
[2020-03-31 09:26] LABS: INR 1.3; Prothrombin Time 15.2 Seconds (9.4-12.1)
[2020-03-31] MEDS ORDERED: Ipratropium 1 PUFF INHALER IH PRN (11:28)
[2020-03-31 13:52] LABS: Albumin 3.4 g/dL (3.5-5.7); Albumin/Globulin Ratio 1.1 (1.1-2.2); Bilirubin,Direct 0.6 mg/dL (0.0-0.2); Bilirubin,Indirect 0.7 mg/dL (0.0-1.0); Bilirubin,Total 1.3 mg/dL (0.3-1.0); Globulin 3.2 g/dL (2.4-3.5); Total Protein 6.6 g/dL (6.4-8.9)
[2020-03-31] MEDS ORDERED: Furosemide 20 MG/2 ML VIAL IVP ONE (18:20)
[2020-03-31] MEDS: Gabapentin 300 MG CAPSULE PO SCH (21:09)
[2020-04-01 04:43] LABS: ABG Base Excess -1 mEq/L (-2 to 3); ABG HCO3 22 mEq/L (21-27); ABG Oxygen Saturation 91 % (95-98); ABG PCO2 32 mmHg (35-45); ABG PH 7.45 pH Units (7.32-7.45); ABG PO2 59 mmHg (85-104); ABG TCO2 23 mEq/L (20-26)
[2020-04-01] MEDS ORDERED: Azithromycin 500 MG in 0.9 % Sodium Chloride 250 ML IVPB SCH (05:00)
[2020-04-01] MEDS: cefTRIAXone 2,000 MG in Water for inj. (sterile) 20 ML IVP SCH (05:59)
[2020-04-01] MEDS: *HR* Enoxaparin 40 MG/0.4 ML SYRINGE SQ SCH (05:59)
[2020-04-01] MEDS ORDERED: Dexamethasone 4 MG/ML VIAL IVP SCH (09:00)
[2020-04-01] MEDS ORDERED: dexAMETHasone 4 MG TABLET PO SCH (09:00)
[2020-04-01 10:12] LABS: Basophils % 0.1 %; Hematocrit 46.8 % (37.5-50.1); Hemoglobin 15.9 g/dL (12.9-16.9); Immature Granulocytes % 0.5 % (0-4); Lymphocytes # 0.4 K/mcL (0.6-4.6); Lymphocytes % 2.8 %; Mean Corpuscular Hemoglobin 31.2 pg (28.0-33.3); Mean Corpuscular Volume 91.8 fL (83.0-100.0); Mean Platelet Volume 10.3 fL (9.4-12.4); Monocytes # 0.9 K/mcL (0.0-1.3); Monocytes % 6.1 %; Neutrophils # 12.6 K/mcL (1.6-8.9); Platelet Count 210 K/mcL (140-400); Red Cell Distribution Width 12.2 % (11.5-14.5); Segmented Neutrophils % 90.5 %; White Blood Count 13.9 K/mcL (4.3-11.1)
[2020-04-01 10:42] LABS: Calcium 9.4 mg/dL (8.6-10.3)
[2020-04-01] MEDS: Aspirin 81 MG TAB.CHEW PO SCH (11:32)
[2020-04-01] MEDS: Metoprolol XL (24 HR) Succ 50 MG TAB.ER.24H PO SCH (11:33)
[2020-04-01] MEDS: Gabapentin 300 MG CAPSULE PO SCH ×2 (11:33→21:39)
[2020-04-01] MEDS: Isosorbide MONOnitrate (24 HR) 30 MG TAB.ER.24H PO SCH (11:33)
[2020-04-01] MEDS: Cholecalciferol (D-3) 1,000 UNIT (25MCG) TABLET PO SCH (11:33)
[2020-04-01] MEDS: Furosemide 40 MG/4 ML VIAL IVP SCH (11:34)
[2020-04-01] MEDS ORDERED: Dexamethasone 4 MG/ML VIAL IVP ONE (13:50)
[2020-04-01] MEDS ORDERED: *HR* Dextrose 50 % in Water (Vial) 50 ML VIAL IVP PRN (14:27)
[2020-04-01] MEDS ORDERED: Dextrose Gel 15 GM/37.5 ML TUBE PO PRN ×2 (14:27)
[2020-04-01] MEDS ORDERED: D5% in Water 1,000 ML IVC PRN (14:27)
[2020-04-01] MEDS: Insulin LISPRO 300 UNITS/3 ML VIAL SQ SCH ×2 (18:48→21:35)
[2020-04-01] MEDS: Doxycycline 100 MG CAPSULE PO SCH (21:39)
[2020-04-02] MEDS: cefTRIAXone 2,000 MG in Water for inj. (sterile) 20 ML IVP SCH (05:39)
[2020-04-02] MEDS: *HR* Enoxaparin 40 MG/0.4 ML SYRINGE SQ SCH (05:41)
[2020-04-02 06:45] LABS: Hematocrit 44.3 % (37.5-50.1); Hemoglobin 14.8 g/dL (12.9-16.9); Mean Corpuscular HGB Conc 33.4 g/dL (31.6-35.5); Mean Corpuscular Volume 92.7 fL (83.0-100.0); Mean Platelet Volume 10.8 fL (9.4-12.4); Platelet Count 246 K/mcL (140-400); Red Blood Count 4.78 M/mcL (4.19-5.50); Red Cell Distribution Width 12.3 % (11.5-14.5); White Blood Count 11.1 K/mcL (4.3-11.1)
[2020-04-02 06:50] LABS: INR 1.2; Prothrombin Time 13.8 Seconds (9.4-12.1)
[2020-04-02 06:55] LABS: Calcium 9.5 mg/dL (8.6-10.3); Potassium 4.4 mEq/L (3.5-5.1)
[2020-04-02] MEDS: Gabapentin 300 MG CAPSULE PO SCH (09:47)
[2020-04-02] MEDS: Isosorbide MONOnitrate (24 HR) 30 MG TAB.ER.24H PO SCH (09:47)
[2020-04-02] MEDS: Dexamethasone 4 MG/ML VIAL IVP SCH (09:47)
[2020-04-02] MEDS: Furosemide 40 MG/4 ML VIAL IVP SCH (09:47)
[2020-04-02] MEDS: Doxycycline 100 MG CAPSULE PO SCH ×2 (09:47→20:07)
[2020-04-02] MEDS: Cholecalciferol (D-3) 1,000 UNIT (25MCG) TABLET PO SCH (09:48)
[2020-04-02] MEDS: Aspirin 81 MG TAB.CHEW PO SCH (09:48)
[2020-04-02] MEDS: Insulin LISPRO 300 UNITS/3 ML VIAL SQ SCH ×4 (09:48→20:27)
[2020-04-02] MEDS: Metoprolol XL (24 HR) Succ 50 MG TAB.ER.24H PO SCH (09:49)
[2020-04-03] MEDS: cefTRIAXone 2,000 MG in Water for inj. (sterile) 20 ML IVP SCH (06:00)
[2020-04-03] MEDS ORDERED: *HR* Heparin 5,000 UNIT/ML VIAL SQ SCH (06:00)
[2020-04-03 07:23] LABS: Hematocrit 41.7 % (37.5-50.1); Hemoglobin 14.3 g/dL (12.9-16.9); Mean Corpuscular HGB Conc 34.3 g/dL (31.6-35.5); Mean Corpuscular Hemoglobin 30.8 pg (28.0-33.3); Mean Corpuscular Volume 89.7 fL (83.0-100.0); Mean Platelet Volume 10.3 fL (9.4-12.4); Platelet Count 248 K/mcL (140-400); Red Blood Count 4.65 M/mcL (4.19-5.50)
[2020-04-03 07:29] LABS: VBG HCO3 26 mEq/L (21-27); VBG PCO2 37 mmHg (41-51); VBG PH 7.45 pH Units (7.32-7.42); VBG PO2 68 mmHg (25-50)
[2020-04-03 07:32] LABS: INR 1.3; Prothrombin Time 15.1 Seconds (9.4-12.1)
[2020-04-03] MEDS: Metoprolol XL (24 HR) Succ 50 MG TAB.ER.24H PO SCH (07:55)
[2020-04-03 08:10] LABS: Calcium 9.3 mg/dL (8.6-10.3); Magnesium 2.5 mg/dL (1.6-2.6); Phosphorous 3.6 mg/dL (2.7-4.5); Potassium 4.2 mEq/L (3.5-5.1)
[2020-04-03] MEDS: Insulin LISPRO 300 UNITS/3 ML VIAL SQ SCH ×4 (09:22→21:37)
[2020-04-03] MEDS: Aspirin 81 MG TAB.CHEW PO SCH (09:23)
[2020-04-03] MEDS: Dexamethasone 4 MG/ML VIAL IVP SCH (09:23)
[2020-04-03] MEDS: Furosemide 20 MG/2 ML VIAL IVP SCH (09:23)
[2020-04-03] MEDS: Cholecalciferol (D-3) 1,000 UNIT (25MCG) TABLET PO SCH (09:24)
[2020-04-03] MEDS: Doxycycline 100 MG CAPSULE PO SCH ×2 (09:24→21:32)
[2020-04-03] MEDS: Isosorbide MONOnitrate (24 HR) 30 MG TAB.ER.24H PO SCH (09:24)
[2020-04-03] MEDS: *HR* Heparin 5,000 UNIT/ML VIAL SQ SCH ×2 (14:25→22:00)
[2020-04-04] MEDS: cefTRIAXone 2,000 MG in Water for inj. (sterile) 20 ML IVP SCH (05:33)
[2020-04-04] MEDS: *HR* Heparin 5,000 UNIT/ML VIAL SQ SCH ×3 (06:00→21:02)
[2020-04-04] MEDS: Dexamethasone 4 MG/ML VIAL IVP SCH (10:16)
[2020-04-04] MEDS: Metoprolol XL (24 HR) Succ 50 MG TAB.ER.24H PO SCH (10:16)
[2020-04-04] MEDS: Isosorbide MONOnitrate (24 HR) 30 MG TAB.ER.24H PO SCH (10:16)
[2020-04-04] MEDS: Aspirin 81 MG TAB.CHEW PO SCH (10:16)
[2020-04-04] MEDS: Insulin LISPRO 300 UNITS/3 ML VIAL SQ SCH ×4 (10:17→21:01)
[2020-04-04] MEDS: Furosemide 20 MG/2 ML VIAL IVP SCH (10:17)
[2020-04-04] MEDS: Doxycycline 100 MG CAPSULE PO SCH ×2 (10:18→20:59)
[2020-04-04] MEDS: Cholecalciferol (D-3) 1,000 UNIT (25MCG) TABLET PO SCH (10:18)
[2020-04-04 13:35] LABS: BUN/Creatinine Ratio 63 (6-26); Blood Urea Nitrogen 78 mg/dL (8-23); Calcium 9.2 mg/dL (8.6-10.3); Carbon Dioxide 23 mEq/L (23-29); Chloride 97 mEq/L (98-107); Glucose 163 mg/dL (70-105); Magnesium 2.3 mg/dL (1.6-2.6); Osmolality,Calculated 301 (280-300); Potassium 4.7 mEq/L (3.5-5.1); Sodium 132 mEq/L (136-145); eGFR For African Americans > 60 (> 60); eGFR For Non-African Americans 55 (> 60)
[2020-04-04 21:49] LABS: Hematocrit 42.3 % (37.5-50.1); Hemoglobin 14.6 g/dL (12.9-16.9); Mean Corpuscular HGB Conc 34.5 g/dL (31.6-35.5); Mean Corpuscular Hemoglobin 31.1 pg (28.0-33.3); Mean Platelet Volume 10.1 fL (9.4-12.4); Platelet Count 282 K/mcL (140-400); Red Cell Distribution Width 12.2 % (11.5-14.5); White Blood Count 16.2 K/mcL (4.3-11.1)
[2020-04-04 21:55] LABS: VBG HCO3 23 mEq/L (21-27); VBG PCO2 31 mmHg (41-51); VBG PH 7.49 pH Units (7.32-7.42); VBG PO2 222 mmHg (25-50)
[2020-04-05] MEDS: *HR* Heparin 5,000 UNIT/ML VIAL SQ SCH (05:17)
[2020-04-05 07:46] LABS: Hemoglobin 15.3 g/dL (12.9-16.9); Mean Corpuscular Hemoglobin 31.9 pg (28.0-33.3); Mean Corpuscular Volume 93.9 fL (83.0-100.0); Mean Platelet Volume 10.5 fL (9.4-12.4); Platelet Count 310 K/mcL (140-400); Red Blood Count 4.79 M/mcL (4.19-5.50); Red Cell Distribution Width 12.4 % (11.5-14.5); White Blood Count 16.6 K/mcL (4.3-11.1)
[2020-04-05 07:53] LABS: BUN/Creatinine Ratio 63 (6-26); Blood Urea Nitrogen 76 mg/dL (8-23); Calcium 9.4 mg/dL (8.6-10.3); Carbon Dioxide 27 mEq/L (23-29); Chloride 100 mEq/L (98-107); Glucose 134 mg/dL (70-105); Magnesium 2.3 mg/dL (1.6-2.6); Osmolality,Calculated 305 (280-300); Potassium 4.8 mEq/L (3.5-5.1); Sodium 135 mEq/L (136-145); eGFR For African Americans > 60 (> 60); eGFR For Non-African Americans 57 (> 60)
[2020-04-05] MEDS: Insulin LISPRO 300 UNITS/3 ML VIAL SQ SCH ×4 (08:56→22:15)
[2020-04-05] MEDS: cefTRIAXone 1,000 MG in Water for inj. (sterile) 10 ML IVP SCH (09:00)
[2020-04-05] MEDS: Furosemide 20 MG/2 ML VIAL IVP SCH (09:00)
[2020-04-05] MEDS: Metoprolol XL (24 HR) Succ 50 MG TAB.ER.24H PO SCH (09:01)
[2020-04-05] MEDS: Aspirin 81 MG TAB.CHEW PO SCH (09:01)
[2020-04-05] MEDS: Cholecalciferol (D-3) 1,000 UNIT (25MCG) TABLET PO SCH (09:01)
[2020-04-05] MEDS: Doxycycline 100 MG CAPSULE PO SCH ×2 (09:01→23:12)
[2020-04-05] MEDS: Isosorbide MONOnitrate (24 HR) 30 MG TAB.ER.24H PO SCH (09:02)
[2020-04-05] MEDS: Dexamethasone 4 MG/ML VIAL IVP SCH (09:02)
[2020-04-05] MEDS: *HR* Enoxaparin 80 MG/0.8 ML SYRINGE SQ SCH (17:26)
[2020-04-05] MEDS ORDERED: *HR* Enoxaparin 40 MG/0.4 ML SYRINGE SQ SCH (18:00)
[2020-04-06 02:11] LABS: Hematocrit 42.6 % (37.5-50.1); Hemoglobin 14.6 g/dL (12.9-16.9); Mean Corpuscular HGB Conc 34.3 g/dL (31.6-35.5); Mean Corpuscular Hemoglobin 31.5 pg (28.0-33.3); Mean Platelet Volume 10.3 fL (9.4-12.4); Platelet Count 324 K/mcL (140-400); Red Blood Count 4.63 M/mcL (4.19-5.50); Red Cell Distribution Width 12.6 % (11.5-14.5); White Blood Count 17.3 K/mcL (4.3-11.1)
[2020-04-06 02:23] LABS: BUN/Creatinine Ratio 62 (6-26); Blood Urea Nitrogen 74 mg/dL (8-23); Calcium 9.2 mg/dL (8.6-10.3); Carbon Dioxide 28 mEq/L (23-29); Chloride 99 mEq/L (98-107); Glucose 117 mg/dL (70-105); Magnesium 2.3 mg/dL (1.6-2.6); Osmolality,Calculated 301 (280-300); Sodium 134 mEq/L (136-145); eGFR For African Americans > 60 (> 60); eGFR For Non-African Americans 58 (> 60)
[2020-04-06] MEDS: *HR* Enoxaparin 80 MG/0.8 ML SYRINGE SQ SCH ×2 (05:47→17:13)
[2020-04-06] MEDS: Metoprolol XL (24 HR) Succ 50 MG TAB.ER.24H PO SCH (08:49)
[2020-04-06] MEDS: Isosorbide MONOnitrate (24 HR) 30 MG TAB.ER.24H PO SCH (08:49)
[2020-04-06] MEDS: Aspirin 81 MG TAB.CHEW PO SCH (08:49)
[2020-04-06] MEDS: Cholecalciferol (D-3) 1,000 UNIT (25MCG) TABLET PO SCH (08:49)
[2020-04-06] MEDS: Dexamethasone 4 MG/ML VIAL IVP SCH (08:50)
[2020-04-06] MEDS: cefTRIAXone 1,000 MG in Water for inj. (sterile) 10 ML IVP SCH (08:50)
[2020-04-06] MEDS: Insulin LISPRO 300 UNITS/3 ML VIAL SQ SCH ×4 (08:51→20:11)
[2020-04-06] MEDS: Furosemide 20 MG/2 ML VIAL IVP SCH (08:51)
[2020-04-06] MEDS: Doxycycline 100 MG CAPSULE PO SCH (20:10)
[2020-04-07] MEDS: *HR* Enoxaparin 80 MG/0.8 ML SYRINGE SQ SCH ×2 (05:08→16:55)
[2020-04-07 05:21] LABS: Hematocrit 44.3 % (37.5-50.1); Hemoglobin 14.8 g/dL (12.9-16.9); Mean Corpuscular HGB Conc 33.4 g/dL (31.6-35.5); Mean Corpuscular Hemoglobin 31.4 pg (28.0-33.3); Mean Corpuscular Volume 93.9 fL (83.0-100.0); Mean Platelet Volume 10.2 fL (9.4-12.4); Platelet Count 373 K/mcL (140-400); Red Blood Count 4.72 M/mcL (4.19-5.50); Red Cell Distribution Width 12.6 % (11.5-14.5); White Blood Count 16.2 K/mcL (4.3-11.1)
[2020-04-07 05:51] LABS: BUN/Creatinine Ratio 65 (6-26); Blood Urea Nitrogen 74 mg/dL (8-23); Calcium 9.4 mg/dL (8.6-10.3); Carbon Dioxide 27 mEq/L (23-29); Chloride 99 mEq/L (98-107); Glucose 122 mg/dL (70-105); Magnesium 2.2 mg/dL (1.6-2.6); Osmolality,Calculated 303 (280-300); Potassium 5.2 mEq/L (3.5-5.1); Sodium 135 mEq/L (136-145); eGFR For African Americans > 60 (> 60); eGFR For Non-African Americans > 60 (> 60)
[2020-04-07] MEDS: Insulin LISPRO 300 UNITS/3 ML VIAL SQ SCH ×5 (07:53→19:48)
[2020-04-07] MEDS: Metoprolol XL (24 HR) Succ 50 MG TAB.ER.24H PO SCH (07:57)
[2020-04-07] MEDS: Isosorbide MONOnitrate (24 HR) 30 MG TAB.ER.24H PO SCH (07:57)
[2020-04-07] MEDS: Cholecalciferol (D-3) 1,000 UNIT (25MCG) TABLET PO SCH (07:57)
[2020-04-07] MEDS: Doxycycline 100 MG CAPSULE PO SCH ×2 (07:57→19:48)
[2020-04-07] MEDS: Dexamethasone 4 MG/ML VIAL IVP SCH (07:58)
[2020-04-07] MEDS: Aspirin 81 MG TAB.CHEW PO SCH (07:58)
[2020-04-07] MEDS: cefTRIAXone 1,000 MG in Water for inj. (sterile) 10 ML IVP SCH (07:58)
[2020-04-07] MEDS: Furosemide 20 MG/2 ML VIAL IVP SCH (07:58)
[2020-04-08] MEDS ORDERED: *HR* LORazepam 2 MG/ML VIAL IVP ONE (03:07)
[2020-04-08 03:42] LABS: Fibrinogen 552 mg/dL (169-393)
[2020-04-08 03:56] LABS: BUN/Creatinine Ratio 67 (6-26); Blood Urea Nitrogen 70 mg/dL (8-23); Calcium 9.6 mg/dL (8.6-10.3); Carbon Dioxide 24 mEq/L (23-29); Chloride 99 mEq/L (98-107); Glucose 109 mg/dL (70-105); Magnesium 2.2 mg/dL (1.6-2.6); Osmolality,Calculated 297 (280-300); Potassium 4.9 mEq/L (3.5-5.1); Sodium 133 mEq/L (136-145); eGFR For African Americans > 60 (> 60); eGFR For Non-African Americans > 60 (> 60)
[2020-04-08 04:01] LABS: D-Dimer 4223 ng/mLFEU (0-500)
[2020-04-08 04:07] LABS: Basophils # 0.1 K/mcL (0.0-0.2); Basophils % 0.4 %; Hematocrit 46.8 % (37.5-50.1); Hemoglobin 15.9 g/dL (12.9-16.9); Immature Granulocytes % 2.2 % (0-4); Lymphocytes # 0.6 K/mcL (0.6-4.6); Lymphocytes % 3.8 %; Mean Corpuscular Hemoglobin 31.9 pg (28.0-33.3); Mean Platelet Volume 10.7 fL (9.4-12.4); Monocytes # 0.4 K/mcL (0.0-1.3); Monocytes % 2.4 %; Neutrophils # 15.2 K/mcL (1.6-8.9); Platelet Count 376 K/mcL (140-400); Red Blood Count 4.98 M/mcL (4.19-5.50); Red Cell Distribution Width 12.6 % (11.5-14.5); Segmented Neutrophils % 91.2 %; White Blood Count 16.7 K/mcL (4.3-11.1)
[2020-04-08] MEDS: *HR* Enoxaparin 80 MG/0.8 ML SYRINGE SQ SCH ×2 (05:01→17:20)
[2020-04-08] MEDS: Insulin LISPRO 300 UNITS/3 ML VIAL SQ SCH ×3 (08:01→17:13)
[2020-04-08] MEDS: Aspirin 81 MG TAB.CHEW PO SCH (08:02)
[2020-04-08] MEDS: Doxycycline 100 MG CAPSULE PO SCH ×2 (08:02→20:54)
[2020-04-08] MEDS: Metoprolol XL (24 HR) Succ 50 MG TAB.ER.24H PO SCH (08:03)
[2020-04-08] MEDS: Isosorbide MONOnitrate (24 HR) 30 MG TAB.ER.24H PO SCH (08:03)
[2020-04-08] MEDS: Cholecalciferol (D-3) 1,000 UNIT (25MCG) TABLET PO SCH (08:03)
[2020-04-08] MEDS: Spironolactone 25 MG TABLET PO SCH (08:03)
[2020-04-08] MEDS: Dexamethasone 4 MG/ML VIAL IVP SCH (08:04)
[2020-04-08] MEDS: Furosemide 40 MG/4 ML VIAL IVP SCH (08:05)
[2020-04-08] MEDS: cefTRIAXone 1,000 MG in Water for inj. (sterile) 10 ML IVP SCH (08:25)
[2020-04-09] MEDS: *HR* Enoxaparin 80 MG/0.8 ML SYRINGE SQ SCH (05:06)
[2020-04-09 06:24] LABS: Basophils % 0.2 %; Eosinophils % 0.1 %; Hematocrit 47.8 % (37.5-50.1); Hemoglobin 15.6 g/dL (12.9-16.9); Immature Granulocytes % 1.6 % (0-4); Lymphocytes # 0.7 K/mcL (0.6-4.6); Lymphocytes % 4.5 %; Mean Corpuscular HGB Conc 32.6 g/dL (31.6-35.5); Mean Corpuscular Hemoglobin 30.6 pg (28.0-33.3); Mean Corpuscular Volume 93.7 fL (83.0-100.0); Mean Platelet Volume 10.3 fL (9.4-12.4); Monocytes # 0.4 K/mcL (0.0-1.3); Monocytes % 2.6 %; Neutrophils # 14.6 K/mcL (1.6-8.9); Platelet Count 352 K/mcL (140-400); Red Cell Distribution Width 12.6 % (11.5-14.5)
[2020-04-09 06:44] LABS: BUN/Creatinine Ratio 74 (6-26); Blood Urea Nitrogen 85 mg/dL (8-23); Calcium 9.5 mg/dL (8.6-10.3); Carbon Dioxide 23 mEq/L (23-29); Chloride 100 mEq/L (98-107); Glucose 135 mg/dL (70-105); Magnesium 2.2 mg/dL (1.6-2.6); Osmolality,Calculated 302 (280-300); Sodium 132 mEq/L (136-145); eGFR For African Americans > 60 (> 60); eGFR For Non-African Americans > 60 (> 60)
[2020-04-09] MEDS: Insulin LISPRO 300 UNITS/3 ML VIAL SQ SCH ×5 (08:14→20:55)
[2020-04-09] MEDS: Aspirin 81 MG TAB.CHEW PO SCH (08:16)
[2020-04-09] MEDS: Metoprolol XL (24 HR) Succ 50 MG TAB.ER.24H PO SCH (08:16)
[2020-04-09] MEDS: Cholecalciferol (D-3) 1,000 UNIT (25MCG) TABLET PO SCH (08:17)
[2020-04-09] MEDS: cefTRIAXone 1,000 MG in Water for inj. (sterile) 10 ML IVP SCH (08:17)
[2020-04-09] MEDS: Furosemide 40 MG/4 ML VIAL IVP SCH (08:18)
[2020-04-09] MEDS: Isosorbide MONOnitrate (24 HR) 30 MG TAB.ER.24H PO SCH (08:19)
[2020-04-09] MEDS: Doxycycline 100 MG CAPSULE PO SCH ×2 (08:19→20:54)
[2020-04-09] MEDS: Spironolactone 25 MG TABLET PO SCH (08:20)
[2020-04-09] MEDS: Dexamethasone 4 MG/ML VIAL IVP SCH (08:20)
[2020-04-10] MEDS: *HR* Enoxaparin 40 MG/0.4 ML SYRINGE SQ SCH (06:38)
[2020-04-10] MEDS: Insulin LISPRO 300 UNITS/3 ML VIAL SQ SCH ×4 (07:44→21:09)
[2020-04-10] MEDS: cefTRIAXone 1,000 MG in Water for inj. (sterile) 10 ML IVP SCH (08:00)
[2020-04-10 08:01] LABS: Basophils % 0.2 %; Hematocrit 45.2 % (37.5-50.1); Hemoglobin 15.6 g/dL (12.9-16.9); Immature Granulocytes % 1.4 % (0-4); Lymphocytes # 0.8 K/mcL (0.6-4.6); Lymphocytes % 3.9 %; Mean Corpuscular HGB Conc 34.5 g/dL (31.6-35.5); Mean Corpuscular Hemoglobin 31.3 pg (28.0-33.3); Mean Corpuscular Volume 90.8 fL (83.0-100.0); Mean Platelet Volume 10.5 fL (9.4-12.4); Monocytes # 0.6 K/mcL (0.0-1.3); Monocytes % 2.7 %; Platelet Count 396 K/mcL (140-400); Red Blood Count 4.98 M/mcL (4.19-5.50); Red Cell Distribution Width 12.4 % (11.5-14.5); Segmented Neutrophils % 91.8 %; White Blood Count 20.6 K/mcL (4.3-11.1)
[2020-04-10] MEDS: Doxycycline 100 MG CAPSULE PO SCH (08:01)
[2020-04-10] MEDS: Cholecalciferol (D-3) 1,000 UNIT (25MCG) TABLET PO SCH (08:01)
[2020-04-10] MEDS: Dexamethasone 4 MG/ML VIAL IVP SCH (08:02)
[2020-04-10] MEDS: Aspirin 81 MG TAB.CHEW PO SCH (08:03)
[2020-04-10] MEDS: Furosemide 40 MG/4 ML VIAL IVP SCH (08:03)
[2020-04-10] MEDS: Isosorbide MONOnitrate (24 HR) 30 MG TAB.ER.24H PO SCH (08:03)
[2020-04-10] MEDS: Spironolactone 25 MG TABLET PO SCH (08:03)
[2020-04-10] MEDS: Metoprolol XL (24 HR) Succ 50 MG TAB.ER.24H PO SCH (08:03)
[2020-04-10 08:20] LABS: BUN/Creatinine Ratio 74 (6-26); Blood Urea Nitrogen 83 mg/dL (8-23); Calcium 9.8 mg/dL (8.6-10.3); Carbon Dioxide 20 mEq/L (23-29); Chloride 97 mEq/L (98-107); Glucose 124 mg/dL (70-105); Osmolality,Calculated 295 (280-300); Potassium 4.8 mEq/L (3.5-5.1); Sodium 129 mEq/L (136-145); eGFR For African Americans > 60 (> 60); eGFR For Non-African Americans > 60 (> 60)
[2020-04-10 08:22] LABS: Fibrinogen 538 mg/dL (169-393)
[2020-04-10 08:23] LABS: D-Dimer 2315 ng/mLFEU (0-500)
[2020-04-10] MEDS: Loratadine 10 MG TABLET PO SCH (21:09)
[2020-04-11 05:26] LABS: Basophils % 0.1 %; Hematocrit 46.5 % (37.5-50.1); Hemoglobin 15.8 g/dL (12.9-16.9); Immature Granulocytes % 1.6 % (0-4); Lymphocytes % 4.9 %; Mean Corpuscular Hemoglobin 31.3 pg (28.0-33.3); Mean Corpuscular Volume 92.3 fL (83.0-100.0); Monocytes # 0.6 K/mcL (0.0-1.3); Monocytes % 2.8 %; Neutrophils # 18.6 K/mcL (1.6-8.9); Platelet Count 431 K/mcL (140-400); Red Blood Count 5.04 M/mcL (4.19-5.50); Red Cell Distribution Width 12.4 % (11.5-14.5); Segmented Neutrophils % 90.6 %; White Blood Count 20.6 K/mcL (4.3-11.1)
[2020-04-11] MEDS: *HR* Enoxaparin 40 MG/0.4 ML SYRINGE SQ SCH (05:53)
[2020-04-11 07:10] LABS: BUN/Creatinine Ratio 74 (6-26); Blood Urea Nitrogen 86 mg/dL (8-23); Calcium 10.2 mg/dL (8.6-10.3); Carbon Dioxide 26 mEq/L (23-29); Chloride 98 mEq/L (98-107); Glucose 116 mg/dL (70-105); Magnesium 2.2 mg/dL (1.6-2.6); Osmolality,Calculated 299 (280-300); Potassium 4.9 mEq/L (3.5-5.1); Sodium 131 mEq/L (136-145); eGFR For African Americans > 60 (> 60); eGFR For Non-African Americans 59 (> 60)
[2020-04-11] MEDS ORDERED: Vancomycin 1,250 MG/262.5 ML IV.SOLN IVPB ONE (07:48)
[2020-04-11] MEDS: Insulin LISPRO 300 UNITS/3 ML VIAL SQ SCH ×4 (08:12→20:45)
[2020-04-11] MEDS: Cholecalciferol (D-3) 1,000 UNIT (25MCG) TABLET PO SCH (09:08)
[2020-04-11] MEDS: Piperacillin/Tazobactam 3.375 GM in 0.9 % Sodium Chloride Mini Bag 100 ML IVPB SCH ×3 (09:08→23:09)
[2020-04-11] MEDS: Spironolactone 25 MG TABLET PO SCH (09:09)
[2020-04-11] MEDS: Isosorbide MONOnitrate (24 HR) 30 MG TAB.ER.24H PO SCH (09:09)
[2020-04-11] MEDS: Lactobacillus 1 EACH CAP.SPRINK PO SCH ×2 (09:09→20:50)
[2020-04-11] MEDS: Aspirin 81 MG TAB.CHEW PO SCH (09:10)
[2020-04-11] MEDS: Metoprolol XL (24 HR) Succ 50 MG TAB.ER.24H PO SCH (09:10)
[2020-04-11] MEDS: Loratadine 10 MG TABLET PO SCH (20:50)
[2020-04-12 04:51] LABS: Basophils % 0.2 %; Eosinophils % 0.2 %; Hematocrit 47.8 % (37.5-50.1); Hemoglobin 16.2 g/dL (12.9-16.9); Immature Granulocytes % 1.5 % (0-4); Lymphocytes # 0.9 K/mcL (0.6-4.6); Lymphocytes % 4.6 %; Mean Corpuscular HGB Conc 33.9 g/dL (31.6-35.5); Mean Corpuscular Hemoglobin 31.4 pg (28.0-33.3); Mean Corpuscular Volume 92.6 fL (83.0-100.0); Monocytes # 0.4 K/mcL (0.0-1.3); Neutrophils # 17.1 K/mcL (1.6-8.9); Platelet Count 383 K/mcL (140-400); Red Blood Count 5.16 M/mcL (4.19-5.50); Red Cell Distribution Width 12.3 % (11.5-14.5); Segmented Neutrophils % 91.5 %; White Blood Count 18.7 K/mcL (4.3-11.1)
[2020-04-12 05:17] LABS: BUN/Creatinine Ratio 58 (6-26); Blood Urea Nitrogen 66 mg/dL (8-23); Calcium 9.7 mg/dL (8.6-10.3); Carbon Dioxide 26 mEq/L (23-29); Chloride 101 mEq/L (98-107); Glucose 146 mg/dL (70-105); Magnesium 2.1 mg/dL (1.6-2.6); Osmolality,Calculated 300 (280-300); Potassium 4.8 mEq/L (3.5-5.1); Sodium 134 mEq/L (136-145); eGFR For African Americans > 60 (> 60); eGFR For Non-African Americans > 60 (> 60)
[2020-04-12 05:29] LABS: Thyroid Stimulating Hormone 1.301 mcIU/mL (0.340-5.600)
[2020-04-12] MEDS: *HR* Enoxaparin 40 MG/0.4 ML SYRINGE SQ SCH (06:49)
[2020-04-12] MEDS: Insulin LISPRO 300 UNITS/3 ML VIAL SQ SCH ×4 (07:41→22:39)
[2020-04-12] MEDS: Isosorbide MONOnitrate (24 HR) 30 MG TAB.ER.24H PO SCH (07:53)
[2020-04-12] MEDS: Lactobacillus 1 EACH CAP.SPRINK PO SCH ×2 (07:53→20:10)
[2020-04-12] MEDS: Cholecalciferol (D-3) 1,000 UNIT (25MCG) TABLET PO SCH (07:54)
[2020-04-12] MEDS: Piperacillin/Tazobactam 3.375 GM in 0.9 % Sodium Chloride Mini Bag 100 ML IVPB SCH ×2 (07:54→18:07)
[2020-04-12] MEDS: Vancomycin 1,250 MG/262.5 ML IV.SOLN IVPB SCH (07:54)
[2020-04-12] MEDS: Aspirin 81 MG TAB.CHEW PO SCH (07:54)
[2020-04-12] MEDS: Metoprolol XL (24 HR) Succ 50 MG TAB.ER.24H PO SCH (07:55)
[2020-04-12] MEDS ORDERED: Fluconazole 400 MG/200 ML 400 MG/200 ML BAG IVPB SCH (12:15)
[2020-04-12] MEDS: Magic Mouthwash 10 ML UD Cup PO SCH ×4 (15:13→20:12)
[2020-04-12] MEDS: Dexamethasone 4 MG/ML VIAL IVP SCH (18:08)
[2020-04-12] MEDS: Loratadine 10 MG TABLET PO SCH (20:09)
[2020-04-13] MEDS: Piperacillin/Tazobactam 3.375 GM in 0.9 % Sodium Chloride Mini Bag 100 ML IVPB SCH ×4 (00:11→23:31)
[2020-04-13] MEDS: *HR* Enoxaparin 40 MG/0.4 ML SYRINGE SQ SCH (04:28)
[2020-04-13] MEDS: Cholecalciferol (D-3) 1,000 UNIT (25MCG) TABLET PO SCH (08:33)
[2020-04-13] MEDS: Isosorbide MONOnitrate (24 HR) 30 MG TAB.ER.24H PO SCH (08:33)
[2020-04-13] MEDS: Lactobacillus 1 EACH CAP.SPRINK PO SCH ×2 (08:33→20:52)
[2020-04-13] MEDS: Aspirin 81 MG TAB.CHEW PO SCH (08:33)
[2020-04-13] MEDS: Metoprolol XL (24 HR) Succ 50 MG TAB.ER.24H PO SCH (08:33)
[2020-04-13] MEDS: Magic Mouthwash 10 ML UD Cup PO SCH ×2 (08:34→16:12)
[2020-04-13] MEDS: Dexamethasone 4 MG/ML VIAL IVP SCH (08:34)
[2020-04-13] MEDS: Vancomycin 1,250 MG/262.5 ML IV.SOLN IVPB SCH (08:35)
[2020-04-13] MEDS: Insulin LISPRO 300 UNITS/3 ML VIAL SQ SCH ×3 (08:40→17:11)
[2020-04-13 09:55] LABS: Basophils % 0.2 %; Hematocrit 48.6 % (37.5-50.1); Immature Granulocytes % 1.1 % (0-4); Lymphocytes # 0.6 K/mcL (0.6-4.6); Lymphocytes % 3.2 %; Mean Corpuscular HGB Conc 32.9 g/dL (31.6-35.5); Mean Corpuscular Hemoglobin 31.6 pg (28.0-33.3); Mean Corpuscular Volume 95.9 fL (83.0-100.0); Monocytes # 0.2 K/mcL (0.0-1.3); Monocytes % 0.8 %; Platelet Count 329 K/mcL (140-400); Red Blood Count 5.07 M/mcL (4.19-5.50); Red Cell Distribution Width 12.8 % (11.5-14.5); Segmented Neutrophils % 94.7 %
[2020-04-13 10:12] LABS: Calcium 10.3 mg/dL (8.6-10.3); Magnesium 2.3 mg/dL (1.6-2.6); Potassium 5.4 mEq/L (3.5-5.1)
[2020-04-13] MEDS ORDERED: Fluconazole 200 MG/100 ML 200 MG/100 ML BAG IVPB SCH (15:00)
[2020-04-13] MEDS ORDERED: Haloperidol Lactate 5 MG/ML VIAL IM ONE (20:24)
[2020-04-13] MEDS: Loratadine 10 MG TABLET PO SCH (20:52)
[2020-04-13] MEDS ORDERED: *HR* LORazepam 2 MG/ML VIAL IVP ONE (23:02)
[2020-04-14] MEDS ORDERED: *HR* LORazepam 2 MG/ML VIAL IVP ONE (02:33)
[2020-04-14] MEDS: *HR* Enoxaparin 40 MG/0.4 ML SYRINGE SQ SCH (04:38)
[2020-04-14 06:32] LABS: Basophils % 0.2 %; Monocytes % 2.9 %; Red Cell Distribution Width 13.2 % (11.5-14.5); Segmented Neutrophils % 92.9 %
[2020-04-14 06:34] LABS: Hematocrit 48.9 % (37.5-50.1); Hemoglobin 15.2 g/dL (12.9-16.9); Immature Granulocytes % 1.1 % (0-4); Lymphocytes # 0.8 K/mcL (0.6-4.6); Lymphocytes % 2.9 %; Mean Corpuscular HGB Conc 31.1 g/dL (31.6-35.5); Mean Corpuscular Hemoglobin 30.5 pg (28.0-33.3); Mean Platelet Volume 10.5 fL (9.4-12.4); Neutrophils # 24.1 K/mcL (1.6-8.9); Platelet Count 280 K/mcL (140-400); Red Blood Count 4.99 M/mcL (4.19-5.50); White Blood Count 25.9 K/mcL (4.3-11.1)
[2020-04-14 06:44] LABS: Basophils # 0.1 K/mcL (0.0-0.2); Monocytes # 0.8 K/mcL (0.0-1.3)
[2020-04-14 06:58] LABS: Calcium 9.9 mg/dL (8.6-10.3); Magnesium 2.7 mg/dL (1.6-2.6)
[2020-04-14 07:02] LABS: Platelet Estimate Normal (Normal)
[2020-04-14] MEDS ORDERED: Ringers Solution, Lactated 1,000 ML IVC ONE (07:54)
[2020-04-14] MEDS ORDERED: Ringers Solution, Lactated 1,000 ML IVC SCH (08:00)
[2020-04-14] MEDS: Insulin LISPRO 300 UNITS/3 ML VIAL SQ SCH ×4 (08:09→16:36)
[2020-04-14] MEDS: Dexamethasone 4 MG/ML VIAL IVP SCH (08:10)
[2020-04-14] MEDS: Magic Mouthwash 10 ML UD Cup PO SCH ×3 (08:13→16:47)
[2020-04-14] MEDS: Piperacillin/Tazobactam 3.375 GM in 0.9 % Sodium Chloride Mini Bag 100 ML IVPB SCH (08:36)
[2020-04-14] MEDS: Lactobacillus 1 EACH CAP.SPRINK PO SCH (08:37)
[2020-04-14] MEDS: Aspirin 81 MG TAB.CHEW PO SCH (08:37)
[2020-04-14] MEDS: Metoprolol XL (24 HR) Succ 50 MG TAB.ER.24H PO SCH (08:38)
[2020-04-14] MEDS: Isosorbide MONOnitrate (24 HR) 30 MG TAB.ER.24H PO SCH (08:38)
[2020-04-14] MEDS: Cholecalciferol (D-3) 1,000 UNIT (25MCG) TABLET PO SCH (08:38)
[2020-04-14] MEDS: *HR* Heparin 5,000 UNIT/ML VIAL SQ SCH ×2 (13:30→21:03)
[2020-04-14] MEDS ORDERED: Fluconazole 200 MG/100 ML 100 MG/50 ML BAG IVPB SCH (15:00)
[2020-04-14] MEDS ORDERED: Sodium Bicarbonate 150 MEQ in Water for inj. (sterile) 1,000 ML IVC SCH (15:36)
[2020-04-14 18:29] LABS: Calcium 8.3 mg/dL (8.6-10.3); Potassium 6.6 mEq/L (3.5-5.1)
[2020-04-14] MEDS ORDERED: Calcium Gluconate 1gm/50mL 1 GM/50 ML BAG IVPB ONE (18:36)
[2020-04-14 19:17] LABS: Uric Acid 9.7 mg/dL (2.3-7.6)
[2020-04-14] MEDS: *HR* LORazepam 2 MG/ML VIAL IVP PRN (19:41)
[2020-04-14] MEDS ORDERED: *HR* Dextrose 50 % in Water (Vial) 50 ML VIAL IVP ONE (22:00)
[2020-04-14] MEDS ORDERED: Insulin Human Regular 10 UNIT in 0.9 % Sodium Chloride 10 ML IV ONE (22:00)
[2020-04-15] MEDS: *HR* LORazepam 2 MG/ML VIAL IVP PRN ×4 (01:32→20:06)
[2020-04-15] MEDS: Sodium Bicarbonate 150 MEQ in Water for inj. (sterile) 1,000 ML IVC SCH ×2 (03:40→14:08)
[2020-04-15 04:24] LABS: Hematocrit 46.6 % (37.5-50.1); Hemoglobin 14.8 g/dL (12.9-16.9); Mean Corpuscular HGB Conc 31.8 g/dL (31.6-35.5); Mean Corpuscular Hemoglobin 30.3 pg (28.0-33.3); Mean Corpuscular Volume 95.3 fL (83.0-100.0); Mean Platelet Volume 10.3 fL (9.4-12.4); Platelet Count 239 K/mcL (140-400); Red Blood Count 4.89 M/mcL (4.19-5.50); Red Cell Distribution Width 13.3 % (11.5-14.5)
[2020-04-15 04:43] LABS: Calcium 9.2 mg/dL (8.6-10.3); Potassium 5.3 mEq/L (3.5-5.1)
[2020-04-15] MEDS ORDERED: *HR* Enoxaparin 30 MG/0.3 ML SYRINGE SQ SCH (06:00)
[2020-04-15] MEDS: *HR* Heparin 5,000 UNIT/ML VIAL SQ SCH ×3 (06:04→20:06)
[2020-04-15] MEDS: Piperacillin/Tazobactam 3.375 GM in 0.9 % Sodium Chloride Mini Bag 100 ML IVPB SCH ×3 (06:05→17:31)
[2020-04-15] MEDS: Insulin LISPRO 300 UNITS/3 ML VIAL SQ SCH ×4 (07:33→17:29)
[2020-04-15] MEDS: Lactobacillus 1 EACH CAP.SPRINK PO SCH ×2 (07:33→08:13)
[2020-04-15] MEDS: Loratadine 10 MG TABLET PO SCH (07:33)
[2020-04-15] MEDS: SODIUM ZIRCONIUM CYCLOSILICATE 5 GM POWD.PACK PO SCH ×2 (07:34→09:58)
[2020-04-15] MEDS: Dexamethasone 4 MG/ML VIAL IVP SCH (08:11)
[2020-04-15] MEDS: Aspirin 81 MG TAB.CHEW PO SCH (08:13)
[2020-04-15] MEDS: Magic Mouthwash 10 ML UD Cup PO SCH ×3 (08:16→17:32)
[2020-04-15] MEDS: Isosorbide MONOnitrate (24 HR) 30 MG TAB.ER.24H PO SCH (09:57)
[2020-04-15] MEDS: Cholecalciferol (D-3) 1,000 UNIT (25MCG) TABLET PO SCH (09:58)
[2020-04-15] MEDS: Metoprolol XL (24 HR) Succ 50 MG TAB.ER.24H PO SCH (09:58)
[2020-04-15 18:08] LABS: Bilirubin,Urine Negative (Negative); Blood,Urine Moderate (Negative); Clarity,Urine Clear (Clear); Color,Urine Light-Yellow (Yellow); Glucose,Urine (UA) Normal (Normal); Ketones,Urine Negative (Negative); Leukocyte Esterase,Urine Negative (Negative); Nitrite,Urine Negative (Negative); Protein,Urine Negative (Neg-Trace); RBC,Urine 15-30 per hpf (0-3); Specific Gravity,Urine 1.016 (1.010-1.025); Urobilinogen,Urine Normal (Normal); WBC,Urine 0-3 per hpf (0-3)
[2020-04-16] MEDS: *HR* LORazepam 2 MG/ML VIAL IVP PRN ×5 (01:33→22:00)
[2020-04-16] MEDS: *HR* Heparin 5,000 UNIT/ML VIAL SQ SCH (05:29)
[2020-04-16] MEDS: Piperacillin/Tazobactam 3.375 GM in 0.9 % Sodium Chloride Mini Bag 100 ML IVPB SCH ×3 (05:29→23:37)
[2020-04-16] MEDS: Lactobacillus 1 EACH CAP.SPRINK PO SCH ×3 (08:07→20:50)
[2020-04-16] MEDS: Insulin LISPRO 300 UNITS/3 ML VIAL SQ SCH ×5 (08:07→20:37)
[2020-04-16] MEDS: Loratadine 10 MG TABLET PO SCH ×2 (08:07→20:50)
[2020-04-16] MEDS: Dexamethasone 4 MG/ML VIAL IVP SCH (08:10)
[2020-04-16] MEDS: Aspirin 81 MG TAB.CHEW PO SCH (08:14)
[2020-04-16] MEDS: Isosorbide MONOnitrate (24 HR) 30 MG TAB.ER.24H PO SCH (08:15)
[2020-04-16] MEDS: Metoprolol XL (24 HR) Succ 25 MG TAB.ER.24H PO SCH (08:16)
[2020-04-16] MEDS: Cholecalciferol (D-3) 1,000 UNIT (25MCG) TABLET PO SCH (08:16)
[2020-04-16] MEDS: Magic Mouthwash 10 ML UD Cup PO SCH ×3 (08:18→16:49)
[2020-04-16] MEDS: SODIUM ZIRCONIUM CYCLOSILICATE 5 GM POWD.PACK PO SCH (08:18)
[2020-04-16 10:47] LABS: BUN/Creatinine Ratio 55 (6-26); Blood Urea Nitrogen 73 mg/dL (8-23); Calcium 8.8 mg/dL (8.6-10.3); Carbon Dioxide 32 mEq/L (23-29); Chloride 104 mEq/L (98-107); Glucose 136 mg/dL (70-105); Osmolality,Calculated 324 (280-300); Potassium 4.3 mEq/L (3.5-5.1); Sodium 145 mEq/L (136-145); eGFR For African Americans > 60 (> 60); eGFR For Non-African Americans 51 (> 60)
[2020-04-16] MEDS ORDERED: *HR* Enoxaparin 30 MG/0.3 ML SYRINGE SQ SCH (18:00)
[2020-04-16] MEDS ORDERED: Haloperidol Lactate 5 MG/ML VIAL IM ONE (23:48)
[2020-04-17] MEDS: *HR* LORazepam 2 MG/ML VIAL IVP PRN ×3 (03:12→22:37)
[2020-04-17] MEDS: *HR* Enoxaparin 40 MG/0.4 ML SYRINGE SQ SCH (06:16)
[2020-04-17 07:27] LABS: BUN/Creatinine Ratio 60 (6-26); Blood Urea Nitrogen 73 mg/dL (8-23); Calcium 9.1 mg/dL (8.6-10.3); Carbon Dioxide 30 mEq/L (23-29); Chloride 109 mEq/L (98-107); Glucose 148 mg/dL (70-105); Osmolality,Calculated 332 (280-300); Potassium 4.2 mEq/L (3.5-5.1); Sodium 149 mEq/L (136-145); eGFR For African Americans > 60 (> 60); eGFR For Non-African Americans 57 (> 60)
[2020-04-17] MEDS ORDERED: *HR* Metoprolol 5 MG/5 ML VIAL IVP ONE (09:32)
[2020-04-17] MEDS: Lactobacillus 1 EACH CAP.SPRINK PO SCH ×2 (09:36→22:20)
[2020-04-17] MEDS: Aspirin 81 MG TAB.CHEW PO SCH (09:36)
[2020-04-17] MEDS: Isosorbide MONOnitrate (24 HR) 30 MG TAB.ER.24H PO SCH (09:36)
[2020-04-17] MEDS: Magic Mouthwash 10 ML UD Cup PO SCH ×3 (09:36→17:24)
[2020-04-17] MEDS: Insulin LISPRO 300 UNITS/3 ML VIAL SQ SCH ×4 (09:36→22:21)
[2020-04-17] MEDS: Cholecalciferol (D-3) 1,000 UNIT (25MCG) TABLET PO SCH (09:37)
[2020-04-17] MEDS: Metoprolol XL (24 HR) Succ 25 MG TAB.ER.24H PO SCH (09:37)
[2020-04-17] MEDS: Dexamethasone 4 MG/ML VIAL IVP SCH (09:59)
[2020-04-17] MEDS: Piperacillin/Tazobactam 3.375 GM in 0.9 % Sodium Chloride Mini Bag 100 ML IVPB SCH ×2 (10:00→17:24)
[2020-04-17] MEDS: *HR* Metoprolol 5 MG/5 ML VIAL IVP SCH ×3 (12:05→22:38)
[2020-04-17 20:39] LABS: Hematocrit 44.4 % (37.5-50.1); Hemoglobin 14.3 g/dL (12.9-16.9); Mean Corpuscular HGB Conc 32.2 g/dL (31.6-35.5); Mean Corpuscular Hemoglobin 30.6 pg (28.0-33.3); Mean Corpuscular Volume 95.1 fL (83.0-100.0); Mean Platelet Volume 10.4 fL (9.4-12.4); Platelet Count 185 K/mcL (140-400); Red Blood Count 4.67 M/mcL (4.19-5.50); Red Cell Distribution Width 12.9 % (11.5-14.5)
[2020-04-17 20:42] LABS: White Blood Count 11.7 K/mcL (4.3-11.1)
[2020-04-17 20:54] LABS: INR 1.3; Prothrombin Time 15.3 Seconds (9.4-12.1)
[2020-04-17 20:57] LABS: BUN/Creatinine Ratio 59 (6-26); Blood Urea Nitrogen 74 mg/dL (8-23); Calcium 9.2 mg/dL (8.6-10.3); Carbon Dioxide 29 mEq/L (23-29); Chloride 112 mEq/L (98-107); Glucose 167 mg/dL (70-105); Magnesium 2.2 mg/dL (1.6-2.6); Osmolality,Calculated 338 (280-300); Sodium 151 mEq/L (136-145); eGFR For African Americans > 60 (> 60); eGFR For Non-African Americans 55 (> 60)
[2020-04-17] MEDS: Loratadine 10 MG TABLET PO SCH (22:19)
[2020-04-18] MEDS: Piperacillin/Tazobactam 3.375 GM in 0.9 % Sodium Chloride Mini Bag 100 ML IVPB SCH ×4 (00:10→23:27)
[2020-04-18] MEDS: *HR* LORazepam 2 MG/ML VIAL IVP PRN ×4 (02:23→21:36)
[2020-04-18 05:38] LABS: Hematocrit 43.3 % (37.5-50.1); Mean Corpuscular HGB Conc 32.3 g/dL (31.6-35.5); Mean Corpuscular Hemoglobin 31.2 pg (28.0-33.3); Mean Corpuscular Volume 96.4 fL (83.0-100.0); Mean Platelet Volume 10.3 fL (9.4-12.4); Platelet Count 155 K/mcL (140-400); Red Blood Count 4.49 M/mcL (4.19-5.50); White Blood Count 11.2 K/mcL (4.3-11.1)
[2020-04-18 05:44] LABS: INR 1.3; Prothrombin Time 15.2 Seconds (9.4-12.1)
[2020-04-18 06:03] LABS: BUN/Creatinine Ratio 57 (6-26); Blood Urea Nitrogen 71 mg/dL (8-23); Calcium 8.9 mg/dL (8.6-10.3); Carbon Dioxide 28 mEq/L (23-29); Chloride 114 mEq/L (98-107); Glucose 138 mg/dL (70-105); Magnesium 2.1 mg/dL (1.6-2.6); Osmolality,Calculated 335 (280-300); Potassium 3.9 mEq/L (3.5-5.1); Sodium 151 mEq/L (136-145); eGFR For African Americans > 60 (> 60); eGFR For Non-African Americans 55 (> 60)
[2020-04-18] MEDS: *HR* Metoprolol 5 MG/5 ML VIAL IVP SCH ×4 (07:03→23:26)
[2020-04-18] MEDS: *HR* Enoxaparin 40 MG/0.4 ML SYRINGE SQ SCH (07:03)
[2020-04-18] MEDS: Insulin LISPRO 300 UNITS/3 ML VIAL SQ SCH ×4 (07:04→21:37)
[2020-04-18] MEDS: Isosorbide MONOnitrate (24 HR) 30 MG TAB.ER.24H PO SCH (07:59)
[2020-04-18] MEDS: Dexamethasone 4 MG/ML VIAL IVP SCH (07:59)
[2020-04-18] MEDS: Lactobacillus 1 EACH CAP.SPRINK PO SCH ×2 (07:59→21:37)
[2020-04-18] MEDS: Metoprolol XL (24 HR) Succ 25 MG TAB.ER.24H PO SCH (07:59)
[2020-04-18] MEDS: Aspirin 81 MG TAB.CHEW PO SCH (07:59)
[2020-04-18] MEDS: Magic Mouthwash 10 ML UD Cup PO SCH ×3 (07:59→17:36)
[2020-04-18] MEDS: Cholecalciferol (D-3) 1,000 UNIT (25MCG) TABLET PO SCH (08:00)
[2020-04-18] MEDS: Loratadine 10 MG TABLET PO SCH (21:37)
[2020-04-19] MEDS: *HR* Enoxaparin 40 MG/0.4 ML SYRINGE SQ SCH (05:52)
[2020-04-19] MEDS: *HR* LORazepam 2 MG/ML VIAL IVP PRN ×3 (05:53→23:01)
[2020-04-19] MEDS: *HR* Metoprolol 5 MG/5 ML VIAL IVP SCH ×4 (06:03→23:06)
[2020-04-19] MEDS: Insulin LISPRO 300 UNITS/3 ML VIAL SQ SCH ×4 (07:30→21:49)
[2020-04-19] MEDS: Dexamethasone 4 MG/ML VIAL IVP SCH (09:53)
[2020-04-19 15:28] LABS: Hematocrit 47.4 % (37.5-50.1); Mean Corpuscular HGB Conc 31.6 g/dL (31.6-35.5); Mean Corpuscular Hemoglobin 30.9 pg (28.0-33.3); Mean Corpuscular Volume 97.5 fL (83.0-100.0); Mean Platelet Volume 10.5 fL (9.4-12.4); Platelet Count 124 K/mcL (140-400); Red Blood Count 4.86 M/mcL (4.19-5.50); White Blood Count 13.3 K/mcL (4.3-11.1)
[2020-04-19 15:38] LABS: Alanine Aminotransferase 55 Units/L (7-52); Albumin 2.6 g/dL (3.5-5.7); Albumin/Globulin Ratio 0.9 (1.1-2.2); Alkaline Phosphatase 54 Units/L (34-104); Aspartate Amino Transferase 55 Units/L (13-39); BUN/Creatinine Ratio 59 (6-26); Bilirubin,Direct 0.2 mg/dL (0.0-0.2); Bilirubin,Indirect 0.7 mg/dL (0.0-1.0); Bilirubin,Total 0.9 mg/dL (0.3-1.0); Blood Urea Nitrogen 57 mg/dL (8-23); Calcium 9.3 mg/dL (8.6-10.3); Carbon Dioxide 25 mEq/L (23-29); Chloride 119 mEq/L (98-107); Globulin 2.9 g/dL (2.4-3.5); Glucose 123 mg/dL (70-105); Magnesium 1.9 mg/dL (1.6-2.6); Osmolality,Calculated 331 (280-300); Phosphorous 2.2 mg/dL (2.7-4.5); Potassium 3.8 mEq/L (3.5-5.1); Sodium 152 mEq/L (136-145); Total Protein 5.5 g/dL (6.4-8.9); eGFR For African Americans > 60 (> 60); eGFR For Non-African Americans > 60 (> 60)
[2020-04-19] MEDS: Cholecalciferol (D-3) 1,000 UNIT (25MCG) TABLET PO SCH (15:49)
[2020-04-19] MEDS: Magic Mouthwash 10 ML UD Cup PO SCH ×2 (15:50→16:30)
[2020-04-19] MEDS: Piperacillin/Tazobactam 3.375 GM in 0.9 % Sodium Chloride Mini Bag 100 ML IVPB SCH ×3 (15:50→23:05)
[2020-04-19] MEDS: Aspirin 81 MG TAB.CHEW PO SCH (15:52)
[2020-04-19] MEDS: Lactobacillus 1 EACH CAP.SPRINK PO SCH ×2 (15:53→21:49)
[2020-04-19] MEDS: Isosorbide MONOnitrate (24 HR) 30 MG TAB.ER.24H PO SCH (15:54)
[2020-04-19] MEDS: Metoprolol XL (24 HR) Succ 25 MG TAB.ER.24H PO SCH (15:54)
[2020-04-19] MEDS ORDERED: D5% in Water 1,000 ML IVC SCH (19:15)
[2020-04-19] MEDS: Loratadine 10 MG TABLET PO SCH (21:48)
[2020-04-20 04:53] LABS: VBG HCO3 27 mEq/L (21-27); VBG PCO2 46 mmHg (41-51); VBG PH 7.37 pH Units (7.32-7.42); VBG PO2 58 mmHg (25-50)
[2020-04-20 04:58] LABS: Hematocrit 43.4 % (37.5-50.1); Hemoglobin 13.6 g/dL (12.9-16.9); Mean Corpuscular HGB Conc 31.3 g/dL (31.6-35.5); Mean Corpuscular Hemoglobin 30.2 pg (28.0-33.3); Mean Corpuscular Volume 96.4 fL (83.0-100.0); Mean Platelet Volume 10.8 fL (9.4-12.4); Platelet Count 106 K/mcL (140-400); Red Cell Distribution Width 13.2 % (11.5-14.5); White Blood Count 8.8 K/mcL (4.3-11.1)
[2020-04-20 05:21] LABS: BUN/Creatinine Ratio 54 (6-26); Blood Urea Nitrogen 55 mg/dL (8-23); Calcium 9.2 mg/dL (8.6-10.3); Carbon Dioxide 26 mEq/L (23-29); Chloride 119 mEq/L (98-107); Glucose 199 mg/dL (70-105); Magnesium 1.9 mg/dL (1.6-2.6); Osmolality,Calculated 333 (280-300); Phosphorous 2.4 mg/dL (2.7-4.5); Potassium 3.8 mEq/L (3.5-5.1); Sodium 151 mEq/L (136-145); eGFR For African Americans > 60 (> 60); eGFR For Non-African Americans > 60 (> 60)
[2020-04-20] MEDS: *HR* Enoxaparin 40 MG/0.4 ML SYRINGE SQ SCH (05:39)
[2020-04-20] MEDS: *HR* Metoprolol 5 MG/5 ML VIAL IVP SCH ×3 (05:40→17:04)
[2020-04-20] MEDS ORDERED: Potassium Phosphate 44 MEQ in 0.9 % Sodium Chloride 250 ML IVPB ONE (08:01)
[2020-04-20] MEDS ORDERED: D5% in Water 1,000 ML IVC SCH (08:15)
[2020-04-20] MEDS: Piperacillin/Tazobactam 3.375 GM in 0.9 % Sodium Chloride Mini Bag 100 ML IVPB SCH ×2 (08:36→16:31)
[2020-04-20] MEDS: *HR* LORazepam 2 MG/ML VIAL IVP PRN (09:13)
[2020-04-20] MEDS: Insulin LISPRO 300 UNITS/3 ML VIAL SQ SCH ×4 (10:58→21:25)
[2020-04-20] MEDS: Cholecalciferol (D-3) 1,000 UNIT (25MCG) TABLET PO SCH (10:59)
[2020-04-20] MEDS: Aspirin 81 MG TAB.CHEW PO SCH (10:59)
[2020-04-20] MEDS: Lactobacillus 1 EACH CAP.SPRINK PO SCH ×2 (10:59→21:25)
[2020-04-20] MEDS: Isosorbide MONOnitrate (24 HR) 30 MG TAB.ER.24H PO SCH (10:59)
[2020-04-20] MEDS: Magic Mouthwash 10 ML UD Cup PO SCH ×3 (11:02→16:31)
[2020-04-20] MEDS: Loratadine 10 MG TABLET PO SCH (21:24)
[2020-04-21 01:45] LABS: Red Blood Count 4.45 M/mcL (4.19-5.50); Red Cell Distribution Width 13.2 % (11.5-14.5)
[2020-04-21 01:47] LABS: Hematocrit 44.1 % (37.5-50.1); Hemoglobin 13.5 g/dL (12.9-16.9); Immature Platelets 2.6 % (1.1-6.1); Mean Corpuscular HGB Conc 30.6 g/dL (31.6-35.5); Mean Corpuscular Hemoglobin 30.3 pg (28.0-33.3); Mean Corpuscular Volume 99.1 fL (83.0-100.0); Mean Platelet Volume 10.4 fL (9.4-12.4); White Blood Count 6.4 K/mcL (4.3-11.1)
[2020-04-21 02:03] LABS: BUN/Creatinine Ratio 46 (6-26); Blood Urea Nitrogen 48 mg/dL (8-23); Calcium 8.8 mg/dL (8.6-10.3); Carbon Dioxide 22 mEq/L (23-29); Chloride 118 mEq/L (98-107); Glucose 132 mg/dL (70-105); Magnesium 1.6 mg/dL (1.6-2.6); Osmolality,Calculated 320 (280-300); Phosphorous 2.8 mg/dL (2.7-4.5); Potassium 4.1 mEq/L (3.5-5.1); Sodium 148 mEq/L (136-145); eGFR For African Americans > 60 (> 60); eGFR For Non-African Americans > 60 (> 60)
[2020-04-21] MEDS: *HR* Metoprolol 5 MG/5 ML VIAL IVP SCH ×4 (03:06→17:17)
[2020-04-21] MEDS: Piperacillin/Tazobactam 3.375 GM in 0.9 % Sodium Chloride Mini Bag 100 ML IVPB SCH ×2 (03:07→09:56)
[2020-04-21] MEDS: *HR* LORazepam 2 MG/ML VIAL IVP PRN ×3 (04:17→14:38)
[2020-04-21] MEDS: *HR* Enoxaparin 40 MG/0.4 ML SYRINGE SQ SCH (05:39)
[2020-04-21] MEDS: Insulin LISPRO 300 UNITS/3 ML VIAL SQ SCH ×2 (08:41→11:06)
[2020-04-21] MEDS: Cholecalciferol (D-3) 1,000 UNIT (25MCG) TABLET PO SCH (08:45)
[2020-04-21] MEDS: Lactobacillus 1 EACH CAP.SPRINK PO SCH (08:45)
[2020-04-21] MEDS: Isosorbide MONOnitrate (24 HR) 30 MG TAB.ER.24H PO SCH (08:45)
[2020-04-21] MEDS: Aspirin 81 MG TAB.CHEW PO SCH (08:45)
[2020-04-21] MEDS: Magic Mouthwash 10 ML UD Cup PO SCH ×3 (09:54→17:17)
[2020-04-21 21:39] VITALS: BP 83/47
== END 2020-04-21 22:43 | disposition expired | DRG 871 ==
LOC: EMEROOARM 05:24 → 2NENU 05:24 → SUATTDRO 09:00 → 2NENU 09:50
PROVIDERS: ADMIT Internal Medicine; ATTEND Family Medicine